=== PATIENT | male | born 1940 | race Caucasian/White ===

== ENCOUNTER 2020-09-07 13:53 | Emergency (ER) | payer OTHER ==
--- OUTSIDE RECORDS SUMMARY | 2020-09-07 13:57 | XMS REPORT | Continuity of Care Document ---
:1940 Author Organization [facility] t Address [address] [place] [address] Care Team Providers Name Role Phone Unavailable Unavailable Unavailable Payers Payer Name Policy Type Policy Number Effective Date Expiration Date S ource Problems This patient has no known problems. Allergies, Adverse Reactions, Alerts Allergy Allergy Status Severity Reaction(s) Onset Inactive Treating Comm ents Source Name Type Date Date Clinician morphine DA Active [place] 2019-11 [facility] [place] 00:00: [address] Medications This patient has no known medications. Procedures This patient has no known procedures. Results Test Description Test Time Test Comments Results Result Comments Source GLUCOSE BEDSIDE TESTING 2020-09-03 09:19:00 Test Item Value Reference Range Interpretation Comme [facility] GLUCOSE BEDSIDE TESTING (test code = GLUBED) 157 MG/DL 60-99 H - XR CHEST [id number] 08:07:[address] [facility] : 1940 Sex: M Patient Name: RAYSHAWN ZAVALA Unit No: [id number] EXAMS: CPT CODE: [id number] XR CHEST 1V [id number] EXAMINATION: - XR CHEST 1V. LOCATION: B2. HIST ORY: s/p CAB. COMPARISON: Radiograph dated 08/30/2020. TECHNIQUE: Single AP view of the chest was obtained. FINDINGS: Right subclavian line is unchangedin position. The heart is mildly enlarged in size. Small left pleural effusion and mild bibasilar opacities are not significantly changed. No acute osseous abnormality is identified. IMPRESSION: Small left pleural effusion and mild bibasilar opacities, unchanged. Cardiomegaly. Electronically Signed by Romana Del Rosario MD on09/03/2020 at 0807 Reported and signed by: Romana Del Rosario MD CC: April JOEL Technologist: RT Sharla(R) Transcrpt Date/Tm/Trnsp: 09/03/2020 (806) [email or web address] Orig Print D/T: S: 09/03/2020 (810) [facility] NAME: RAYSHAWN ZAVALA [address] [place] [address] PHYS: [place] [address] : 1940 AGE: 80 SEX: M LOC: Z.SI02 A PHONE #: [phone] EXAM DATE: 09/03/2020 STATUS: ADM IN FAX #: [phone] RADIOLOGY NO: PAGE 1 Signed ReportCBC W/AUTO [id number] 06:36:00 Test Item Value Reference Range Interpretation Comments WHITE BLOOD CELL (test code = 11.0 K/MM3 3.8-9.8 H WBC) RED BLOOD CELL (test code = 3.16 M/MM3 3.95-5.67 L RBC) HEMOGLOBIN (test code = HGB) 9.7 G/DL 12.4-16.7 L HEMATOCRIT (test code = HCT) 30.5 % 35.9-49.5 L MEAN CELL VOLUME (test code = 97 fL 81.7-96.1 H MCV) MEAN CELL HGB (test code = MCH) 30.7 pg 27.6-33.2 N MEAN CELL HGB CONCETRATION 31.8 % 32.9-35.5 L (test code = MCHC) RED CELL DISTRIBUTION WIDTH 14.5 % 12.1-15.2 N (test code = RDW) PLATELET COUNT (test code = 418 K/MM3 129-368 H PLT) MEAN PLATELET VOLUME (test code 8.5 fl 7.4-10.4 N = MPV) NEUTROPHIL % (test code = NT%) 59.2 % 43-75 N IMMATURE GRANULOCYTE % (test 2.0 % 0.0-2.0 N code = IG%) LYMPHOCYTE % (test code = LY%) 27.0 % 14-44 N MONOCYTE % (test code = MO%) 8.6 % 4-13 N EOSINOPHIL % (test code = EO%) 2.9 % 0-6 N BASOPHIL % (test code = BA%) 0.3 % 0-2 N NUCLEATED RBC % (test code = 0.2 % 0-1.0 N NRBC%) NEUTROPHIL # (test code = NT#) 6.53 K/mm3 2.0-7.6 N IMMATURE GRANULOCYTE # (test 0.22 x10 3/uL 0-0.03 H code = IG#) LYMPHOCYTE # (test code = LY#) 2.98 K/mm3 1.0-3.8 N MONOCYTE # (test code = MO#) 0.95 K/mm3 0.1-0.8 H EOSINOPHIL # (test code = EO#) 0.32 K/mm3 0.0-0.2 H BASOPHIL # (test code = BA#) 0.03 K/mm3 0.0-0.2 N NUCLEATED RBC # (test code = 0.02 K/mm3 0.0-0.1 N NRBC#) GLUCOSE BEDSIDE [id number] 21:13:00 Test Item Value Reference Range Interpretation Comments GLUCOSE BEDSIDE TESTING (test code 171 MG/DL 60-99 H = GLUBED) GLUCOSE BEDSIDE [id number] 18:15:00 Test Item Value Reference Range Interpretation Comments GLUCOSE BEDSIDE TESTING (test code 183 MG/DL 60-99 H = GLUBED) GLUCOSE BEDSIDE [id number] 14:16:00 Test Item Value Reference Range Interpretation Comments GLUCOSE BEDSIDE TESTING (test code 137 MG/DL 60-99 H = GLUBED) GLUCOSE BEDSIDE [id number] 10:31:00 Test Item Value Reference Range Interpretation Comments GLUCOSE BEDSIDE TESTING (test code 109 MG/DL 60-99 H = GLUBED) GLUCOSE BEDSIDE [id number] 10:31:00 Test Item Value Reference Range Interpretation Comments GLUCOSE BEDSIDE TESTING (test code 158 MG/DL 60-99 H = GLUBED) GLUCOSE BEDSIDE [id number] 08:43:00 Test Item Value Reference Range Interpretation Comments GLUCOSE BEDSIDE TESTING (test code 102 MG/DL 60-99 H = GLUBED) GLUCOSE BEDSIDE [id number] 21:05:00 Test Item Value Reference Range Interpretation Comments GLUCOSE BEDSIDE TESTING (test code 130 MG/DL 60-99 H = GLUBED) GLUCOSE BEDSIDE [id number] 15:55:00 Test Item Value Reference Range Interpretation Comments GLUCOSE BEDSIDE TESTING (test code 156 MG/DL 60-99 H = GLUBED) GLUCOSE BEDSIDE [id number] 20:36:00 Test Item Value Reference Range Interpretation Comments GLUCOSE BEDSIDE TESTING (test code 144 MG/DL 60-99 H = GLUBED) GLUCOSE BEDSIDE [id number] 17:00:00 Test Item Value Reference Range Interpretation Comments GLUCOSE BEDSIDE TESTING (test code = 99 MG/DL 60-99 N GLUBED) - XR KNEE 1 OR 2 V [id number] 15:56:[address] [facility] : 1940 Sex: M Patient Name: RAYSHAWN ZAVALA Unit No: [id number] EXAMS: CPT CODE: [id number] XR KNEE 1 OR 2 [place] [address] X-ray right knee. INDICATION: Pain FINDINGS: No priors. No evidence of an acute fracture or dislocation. Moderate tricompartment joint space narrowing. Mild joint effusion seen. Prior ACL repair. Moderate edema IMPRESSION: 1. No acute osseous abnormality. 2. Moderate soft tissue edema. 3. Moderate tricompartment arthritis at 1556 Reported and signed by: Zurdo Wheeler M.D. CC: Jany De La Paz MD Technologist: Nico Viera (RT) (R); Benigno Reynolds (RT) (R) Transcrpt Date/Tm/Trnsp: 08/31/2020 (1556) [id number] Orig Print D/T: S: 08/31/2020 (4396) [facility] NAME: RAYSHAWN ZAVALA [address] [address] PHYS: [place] [address] : 1940 AGE: 80 SEX: M LOC: Z.SI02 A PHONE #: [phone] EXAM DATE: 08/31/2020 STATUS: ADM IN FAX #: [phone] RADIOLOGY NO: PAGE 1 Signed ReportGLUCOSE BEDSIDE [id number] 11:53:00 Test Item Value Reference Range Interpretation Comments GLUCOSE BEDSIDE TESTING (test code 233 MG/DL 60-99 H = GLUBED) GLUCOSE BEDSIDE [id number] 08:52:00 Test Item Value Reference Range Interpretation Comments GLUCOSE BEDSIDE TESTING (test code 137 MG/DL 60-99 H = GLUBED) BASIC METABOLIC [id number] 07:02:00 Test Item Value Reference Range Interpretation Comments SODIUM (test code = 130 MMOL/L 137-145 L NA) POTASSIUM (test code = 3.6 MMOL/L 3.5-5.1 N K) CHLORIDE (test code = 98 MMOL/L 98-107 N CL) CARBON DIOXIDE (test 30 MMOL/L 22-30 N code = CO2) GLUCOSE (test code = 130 MG/DL 74-106 H GLU) BLOOD UREA NITROGEN 17 MG/DL 9-20 N (test code = BUN) GLOMERULAR FILTRATION > 60 Report ing units: RATE (test code = GFR) ml/mi n/1.73 m2 (Modified MDRD Formula)Referen ce Range: > or = 6 0 ml/min/1.73 m2 CREATININE (test code 1.00 MG/DL 0.66-1.25 N = CREAT) CALCIUM (test code = 7.8 MG/DL 8.4-10.2 L CA) Is this a LINE draw? [id number] 07:02:00 Test Item Value Reference Range Interpretation Comments MAGNESIUM (test code = MAG) 2.4 MG/DL 1.6-2.3 H Is this a LINE draw? NCBC W/AUTO [id number] 07:00:00 Test Item Value Reference Range Interpretation Comments WHITE BLOOD CELL (test code = 10.3 K/MM3 3.8-9.8 H WBC) RED BLOOD CELL (test code = 2.47 M/MM3 3.95-5.67 L RBC) HEMOGLOBIN (test code = HGB) 7.5 G/DL 12.4-16.7 L HEMATOCRIT (test code = HCT) 23.9 % 35.9-49.5 L MEAN CELL VOLUME (test code = 97 fL 81.7-96.1 H MCV) MEAN CELL HGB (test code = MCH) 30.4 pg 27.6-33.2 N MEAN CELL HGB CONCETRATION 31.4 % 32.9-35.5 L (test code = MCHC) RED CELL DISTRIBUTION WIDTH 13.3 % 12.1-15.2 N (test code = RDW) PLATELET COUNT (test code = 221 K/MM3 129-368 N PLT) MEAN PLATELET VOLUME (test code 9.7 fl 7.4-10.4 N = MPV) NEUTROPHIL % (test code = NT%) 70.3 % 43-75 N IMMATURE GRANULOCYTE % (test 1.1 % 0.0-2.0 N code = IG%) LYMPHOCYTE % (test code = LY%) 16.6 % 14-44 N MONOCYTE % (test code = MO%) 9.6 % 4-13 N EOSINOPHIL % (test code = EO%) 2.1 % 0-6 N BASOPHIL % (test code = BA%) 0.3 % 0-2 N NUCLEATED RBC % (test code = 0.2 % 0-1.0 N NRBC%) NEUTROPHIL # (test code = NT#) 7.23 K/mm3 2.0-7.6 N IMMATURE GRANULOCYTE # (test 0.11 x10 3/uL 0-0.03 H code = IG#) LYMPHOCYTE # (test code = LY#) 1.71 K/mm3 1.0-3.8 N MONOCYTE # (test code = MO#) 0.99 K/mm3 0.1-0.8 H EOSINOPHIL # (test code = EO#) 0.22 K/mm3 0.0-0.2 H BASOPHIL # (test code = BA#) 0.03 K/mm3 0.0-0.2 N NUCLEATED RBC # (test code = 0.02 K/mm3 0.0-0.1 N NRBC#) Is this a LINE draw? NBASIC METABOLIC [id number] 06:59:00 Test Item Value Reference Range Interpretation Comments SODIUM (test code = 130 MMOL/L 137-145 L NA) POTASSIUM (test code = 3.6 MMOL/L 3.5-5.1 N K) CHLORIDE (test code = 98 MMOL/L 98-107 N CL) CARBON DIOXIDE (test 30 MMOL/L 22-30 N code = CO2) GLUCOSE (test code = MG/DL 74-106 GLU) BLOOD UREA NITROGEN MG/DL 9-20 (test code = BUN) GLOMERULAR FILTRATION > 60 Report ing units: RATE (test code = GFR) ml/mi n/1.73 m2 (Modified MDRD Formula)Referen ce Range: > or = 6 0 ml/min/1.73 m2 CREATININE (test code 1.00 MG/DL 0.66-1.25 N = CREAT) CALCIUM (test code = MG/DL 8.7-9.7 CA) Is this a LINE draw? [id number] 06:59:00 Test Item Value Reference Range Interpretation Comments MAGNESIUM (test code = MAG) MG/DL 1.6-2.3 Is this a LINE draw? NBASIC METABOLIC [id number] 06:56:00 Test Item Value Reference Range Interpretation Comments SODIUM (test code = NA) 130 MMOL/L 137-145 L POTASSIUM (test code = K) 3.6 MMOL/L 3.5-5.1 N CHLORIDE (test code = CL) 98 MMOL/L 98-107 N CARBON DIOXIDE (test code = CO2) MMOL/L 22-30 GLUCOSE (test code = GLU) MG/DL 74-106 BLOOD UREA NITROGEN (test code = MG/DL 9-20 BUN) GLOMERULAR FILTRATION RATE (test code = GFR) CREATININE (test code = CREAT) MG/DL 0.66-1.25 CALCIUM (test code = CA) MG/DL 8.7-9.7 Is this a LINE draw? [id number] 06:56:00 Test Item Value Reference Range Interpretation Comments MAGNESIUM (test code = MAG) MG/DL 1.6-2.3 Is this a LINE draw? NCOMPREHENSIVE METABOLIC [id number] 17:26:00 Test Item Value Reference Range Interpretation Comments SODIUM (test code = 129 MMOL/L 137-145 L NA) POTASSIUM (test code 4.1 MMOL/L 3.5-5.1 N = K) CHLORIDE (test code 96 MMOL/L 98-107 L = CL) CARBON DIOXIDE (test 27 MMOL/L 22-30 N code = CO2) GLUCOSE (test code = 213 MG/DL 74-106 H GLU) BLOOD UREA NITROGEN 17 MG/DL 9-20 N (test code = BUN) GLOMERULAR > 60 Reporting units : FILTRATION RATE ml/min/1.73 m2 (test code = GFR) (Modified MDRD Formula)Referen ce Range: > or = 6 0 ml/min/1.73 m2 CREATININE (test 1.00 MG/DL 0.66-1.25 N code = CREAT) TOTAL PROTEIN (test 5.1 G/DL 6.2-7.6 L code = PROT) ALBUMIN (test code = 2.6 G/DL 3.5-5.0 L ALB) CALCIUM (test code = 7.8 MG/DL 8.4-10.2 L CA) BILIRUBIN TOTAL 0.7 MG/DL 0.2-1.3 N Eltrombopag (test code = BILT) Interfere nce for Vitros Product TBil, BuBc: ======= ======= ======A ssay Eltrombop ag Analyte/ Max Observed Avg. Bias Concentratio n Concentration Concentration== ======= ======= ======= =======TBil 7 mg/dl TBil/ 1.2m g/dl +0.23mg.dl +0.20mg/dlBuBc 3.5mg/dl Bu/0.8mg/dl +0.25mg/dl +0.24mg/dlBuBc 7 mg/dl Bu/14.2mg/dl +0.38mg/dl +0.25mg/dlBuBc 5mg/dl Bc/0mg/dl +0.25mg/dl +0.15mg/dlBuBc 3.5mg/dl Bc/2.8mg/dl +0.25mg/dl +0.23mg/dl SGOT/AST (test code 55 UNITS/L 17-59 N = AST) SGPT/ALT (test code 43 UNITS/L <50 = ALT) ALKALINE PHOSPHATASE 132 UNITS/L 38-126 H (test code = ALKP) COMPREHENSIVE METABOLIC [id number] 17:21:00 Test Item Value Reference Range Interpretation Comments SODIUM (test code = 129 MMOL/L 137-145 L NA) POTASSIUM (test code 4.1 MMOL/L 3.5-5.1 N = K) CHLORIDE (test code = 96 MMOL/L 98-107 L CL) CARBON DIOXIDE (test 27 MMOL/L 22-30 N code = CO2) GLUCOSE (test code = MG/DL 74-106 GLU) BLOOD UREA NITROGEN MG/DL 9-20 (test code = BUN) GLOMERULAR FILTRATION > 60 Report ing units: RATE (test code = ml/min/1.7 3 m2 GFR) (Modified MDRD Formula)Referen ce Range: > or = 6 0 ml/min/1.73 m2 CREATININE (test code 1.00 MG/DL 0.66-1.25 N = CREAT) TOTAL PROTEIN (test 5.1 G/DL 6.2-7.6 L code = PROT) ALBUMIN (test code = 2.6 G/DL 3.5-5.0 L ALB) CALCIUM (test code = MG/DL 8.7-9.7 CA) BILIRUBIN TOTAL (test 0.7 MG/DL 0.2-1.3 N Eltrom bopag code = BILT) Interference fo r Vitros Product TBil, BuBc: ======= ======= ======A ssay Eltrombop ag Analyte/ Max Observed Avg. Bias Concentratio n Concentration Concentration== ======= ======= ======= =======TBil 7 mg/dl TBil/ 1.2m g/dl +0.23mg.dl +0.20mg/dlBuBc 3.5mg/dl Bu/0.8mg/dl +0.25mg/dl +0.24mg/dlBuBc 7 mg/dl Bu/14.2mg/dl +0.38mg/dl +0.25mg/dlBuBc 5mg/dl Bc/0mg/dl +0.25mg/dl +0.15mg/dlBuBc 3.5mg/dl Bc/2.8mg/dl +0.25mg/dl +0.23mg/dl SGOT/AST (test code = 55 UNITS/L 17-59 N AST) SGPT/ALT (test code = UNITS/L <50 ALT) ALKALINE PHOSPHATASE UNITS/L 38-126 (test code = ALKP) COMPREHENSIVE METABOLIC [id number] 17:21:00 Test Item Value Reference Range Interpretation Comments SODIUM (test code = 129 MMOL/L 137-145 L NA) POTASSIUM (test code 4.1 MMOL/L 3.5-5.1 N = K) CHLORIDE (test code 96 MMOL/L 98-107 L = CL) CARBON DIOXIDE (test 27 MMOL/L 22-30 N code = CO2) GLUCOSE (test code = MG/DL 74-106 GLU) BLOOD UREA NITROGEN 17 MG/DL 9-20 N (test code = BUN) GLOMERULAR > 60 Reporting units : FILTRATION RATE ml/min/1.73 m2 (test code = GFR) (Modified MDRD Formula)Referen ce Range: > or = 6 0 ml/min/1.73 m2 CREATININE (test 1.00 MG/DL 0.66-1.25 N code = CREAT) TOTAL PROTEIN (test 5.1 G/DL 6.2-7.6 L code = PROT) ALBUMIN (test code = 2.6 G/DL 3.5-5.0 L ALB) CALCIUM (test code = MG/DL 8.7-9.7 CA) BILIRUBIN TOTAL 0.7 MG/DL 0.2-1.3 N Eltrombopag (test code = BILT) Interfere nce for Vitros Product TBil, BuBc: ======= ======= ======A ssay Eltrombop ag Analyte/ Max Observed Avg. Bias Concentratio n Concentration Concentration== ======= ======= ======= =======TBil 7 mg/dl TBil/ 1.2m g/dl +0.23mg.dl +0.20mg/dlBuBc 3.5mg/dl Bu/0.8mg/dl +0.25mg/dl +0.24mg/dlBuBc 7 mg/dl Bu/14.2mg/dl +0.38mg/dl +0.25mg/dlBuBc 5mg/dl Bc/0mg/dl +0.25mg/dl +0.15mg/dlBuBc 3.5mg/dl Bc/2.8mg/dl +0.25mg/dl +0.23mg/dl SGOT/AST (test code 55 UNITS/L 17-59 N = AST) SGPT/ALT (test code UNITS/L <50 = ALT) ALKALINE PHOSPHATASE 132 UNITS/L 38-126 H (test code = ALKP) COMPREHENSIVE METABOLIC [id number] 17:19:00 Test Item Value Reference Range Interpretation Comments SODIUM (test code = NA) 129 MMOL/L 137-145 L POTASSIUM (test code = K) 4.1 MMOL/L 3.5-5.1 N CHLORIDE (test code = CL) 96 MMOL/L 98-107 L CARBON DIOXIDE (test code = CO2) MMOL/L 22-30 GLUCOSE (test code = GLU) MG/DL 74-106 BLOOD UREA NITROGEN (test code = MG/DL 9-20 BUN) GLOMERULAR FILTRATION RATE (test code = GFR) CREATININE (test code = CREAT) MG/DL 0.66-1.25 TOTAL PROTEIN (test code = PROT) G/DL 6.2-7.6 ALBUMIN (test code = ALB) 2.6 G/DL 3.5-5.0 L CALCIUM (test code = CA) MG/DL 8.7-9.7 BILIRUBIN TOTAL (test code = BILT) MG/DL 0.2-1.3 SGOT/AST (test code = AST) UNITS/L 15-37 SGPT/ALT (test code = ALT) UNITS/L <50 ALKALINE PHOSPHATASE (test code = UNITS/L 38-126 ALKP) COMPREHENSIVE METABOLIC [id number] 17:18:00 Test Item Value Reference Range Interpretation Comments SODIUM (test code = NA) 129 MMOL/L 137-145 L POTASSIUM (test code = K) MMOL/L 3.5-5.1 CHLORIDE (test code = CL) 96 MMOL/L 98-107 L CARBON DIOXIDE (test code = CO2) MMOL/L 22-30 GLUCOSE (test code = GLU) MG/DL 74-106 BLOOD UREA NITROGEN (test code = MG/DL 9-20 BUN) GLOMERULAR FILTRATION RATE (test code = GFR) CREATININE (test code = CREAT) MG/DL 0.66-1.25 TOTAL PROTEIN (test code = PROT) G/DL 6.2-7.6 ALBUMIN (test code = ALB) 2.6 G/DL 3.5-5.0 L CALCIUM (test code = CA) MG/DL 8.7-9.7 BILIRUBIN TOTAL (test code = BILT) MG/DL 0.2-1.3 SGOT/AST (test code = AST) UNITS/L 15-37 SGPT/ALT (test code = ALT) UNITS/L <50 ALKALINE PHOSPHATASE (test code = UNITS/L 38-126 ALKP) GLUCOSE BEDSIDE [id number] 16:55:00 Test Item Value Reference Range Interpretation Comments GLUCOSE BEDSIDE TESTING (test code 157 MG/DL 60-99 H = GLUBED) GLUCOSE BEDSIDE [id number] 13:00:00 Test Item Value Reference Range Interpretation Comments GLUCOSE BEDSIDE TESTING (test code 179 MG/DL 60-99 H = GLUBED) CBC W/AUTO [id number] 10:37:00 Test Item Value Reference Range Interpretation Comments WHITE BLOOD CELL (test code = 11.8 K/MM3 3.8-9.8 H WBC) RED BLOOD CELL (test code = 2.59 M/MM3 3.95-5.67 L RBC) HEMOGLOBIN (test code = HGB) 8.0 G/DL 12.4-16.7 L HEMATOCRIT (test code = HCT) 24.5 % 35.9-49.5 L MEAN CELL VOLUME (test code = 95 fL 81.7-96.1 N MCV) MEAN CELL HGB (test code = MCH) 30.9 pg 27.6-33.2 N MEAN CELL HGB CONCETRATION 32.7 % 32.9-35.5 L (test code = MCHC) RED CELL DISTRIBUTION WIDTH 13.4 % 12.1-15.2 N (test code = RDW) PLATELET COUNT (test code = 201 K/MM3 129-368 PLT) MEAN PLATELET VOLUME (test code 9.5 fl 7.4-10.4 N = MPV) NEUTROPHIL % (test code = NT%) 81.0 % 43-75 H IMMATURE GRANULOCYTE % (test 1.0 % 0.0-2.0 N code = IG%) LYMPHOCYTE % (test code = LY%) 9.0 % 14-44 L MONOCYTE % (test code = MO%) 8.3 % 4-13 N EOSINOPHIL % (test code = EO%) 0.6 % 0-6 N BASOPHIL % (test code = BA%) 0.1 % 0-2 N NUCLEATED RBC % (test code = 0.2 % 0-1.0 N NRBC%) NEUTROPHIL # (test code = NT#) 9.52 K/mm3 2.0-7.6 H IMMATURE GRANULOCYTE # (test 0.12 x10 3/uL 0-0.03 H code = IG#) LYMPHOCYTE # (test code = LY#) 1.06 K/mm3 1.0-3.8 N MONOCYTE # (test code = MO#) 0.97 K/mm3 0.1-0.8 H EOSINOPHIL # (test code = EO#) 0.07 K/mm3 0.0-0.2 N BASOPHIL # (test code = BA#) 0.01 K/mm3 0.0-0.2 N NUCLEATED RBC # (test code = 0.02 K/mm3 0.0-0.1 N NRBC#) BASIC METABOLIC [id number] 10:22:00 Test Item Value Reference Range Interpretation Comments SODIUM (test code = 129 MMOL/L 137-145 L NA) POTASSIUM (test code = 4.1 MMOL/L 3.5-5.1 N K) CHLORIDE (test code = 95 MMOL/L 98-107 L CL) CARBON DIOXIDE (test 29 MMOL/L 22-30 N code = CO2) ANION GAP (test code = 9 MMOL/L 14-24 L GAP) GLUCOSE (test code = 211 MG/DL 74-106 H GLU) BLOOD UREA NITROGEN 17 MG/DL 9-20 N (test code = BUN) GLOMERULAR FILTRATION > 60 Report ing units: RATE (test code = GFR) ml/mi n/1.73 m2 (Modified MDRD Formula)Referen ce Range: > or = 6 0 ml/min/1.73 m2 CREATININE (test code 1.00 MG/DL 0.66-1.25 N = CREAT) CALCIUM (test code = 7.7 MG/DL 8.4-10.2 L CA) [id number] 10:22:00 Test Item Value Reference Range Interpretation Comments MAGNESIUM (test code = MAG) 2.4 MG/DL 1.6-2.3 H BASIC METABOLIC [id number] 10:21:00 Test Item Value Reference Range Interpretation Comments SODIUM (test code = 129 MMOL/L 137-145 L NA) POTASSIUM (test code = 4.1 MMOL/L 3.5-5.1 N K) CHLORIDE (test code = 95 MMOL/L 98-107 L CL) CARBON DIOXIDE (test MMOL/L 22-30 code = CO2) GLUCOSE (test code = MG/DL 74-106 GLU) BLOOD UREA NITROGEN MG/DL 9-20 (test code = BUN) GLOMERULAR FILTRATION > 60 Report ing units: RATE (test code = GFR) ml/mi n/1.73 m2 (Modified MDRD Formula)Referen ce Range: > or = 6 0 ml/min/1.73 m2 CREATININE (test code 1.00 MG/DL 0.66-1.25 N = CREAT) CALCIUM (test code = MG/DL 8.7-9.7 CA) [id number] 10:21:00 Test Item Value Reference Range Interpretation Comments MAGNESIUM (test code = MAG) MG/DL 1.6-2.3 BASIC METABOLIC [id number] 10:21:00 Test Item Value Reference Range Interpretation Comments SODIUM (test code = 129 MMOL/L 137-145 L NA) POTASSIUM (test code = 4.1 MMOL/L 3.5-5.1 N K) CHLORIDE (test code = 95 MMOL/L 98-107 L CL) CARBON DIOXIDE (test 29 MMOL/L 22-30 N code = CO2) ANION GAP (test code = 9 MMOL/L 14-24 L GAP) GLUCOSE (test code = MG/DL 74-106 GLU) BLOOD UREA NITROGEN MG/DL 9-20 (test code = BUN) GLOMERULAR FILTRATION > 60 Report ing units: RATE (test code = GFR) ml/mi n/1.73 m2 (Modified MDRD Formula)Referen ce Range: > or = 6 0 ml/min/1.73 m2 CREATININE (test code 1.00 MG/DL 0.66-1.25 N = CREAT) CALCIUM (test code = MG/DL 8.7-9.7 CA) [id number] 10:21:00 Test Item Value Reference Range Interpretation Comments MAGNESIUM (test code = MAG) MG/DL 1.6-2.3 BASIC METABOLIC [id number] 10:21:00 Test Item Value Reference Range Interpretation Comments SODIUM (test code = 129 MMOL/L 137-145 L NA) POTASSIUM (test code = 4.1 MMOL/L 3.5-5.1 N K) CHLORIDE (test code = 95 MMOL/L 98-107 L CL) CARBON DIOXIDE (test 29 MMOL/L 22-30 N code = CO2) ANION GAP (test code = 9 MMOL/L 14-24 L GAP) GLUCOSE (test code = 211 MG/DL 74-106 H GLU) BLOOD UREA NITROGEN 17 MG/DL 9-20 N (test code = BUN) GLOMERULAR FILTRATION > 60 Report ing units: RATE (test code = GFR) ml/mi n/1.73 m2 (Modified MDRD Formula)Referen ce Range: > or = 6 0 ml/min/1.73 m2 CREATININE (test code 1.00 MG/DL 0.66-1.25 N = CREAT) CALCIUM (test code = MG/DL 8.7-9.7 CA) [id number] 10:21:00 Test Item Value Reference Range Interpretation Comments MAGNESIUM (test code = MAG) MG/DL 1.6-2.3 BASIC METABOLIC [id number] 10:21:00 Test Item Value Reference Range Interpretation Comments SODIUM (test code = 129 MMOL/L 137-145 L NA) POTASSIUM (test code = 4.1 MMOL/L 3.5-5.1 N K) CHLORIDE (test code = 95 MMOL/L 98-107 L CL) CARBON DIOXIDE (test 29 MMOL/L 22-30 N code = CO2) ANION GAP (test code = 9 MMOL/L 14-24 L GAP) GLUCOSE (test code = 211 MG/DL 74-106 H GLU) BLOOD UREA NITROGEN 17 MG/DL 9-20 N (test code = BUN) GLOMERULAR FILTRATION > 60 Report ing units: RATE (test code = GFR) ml/mi n/1.73 m2 (Modified MDRD Formula)Referen ce Range: > or = 6 0 ml/min/1.73 m2 CREATININE (test code 1.00 MG/DL 0.66-1.25 N = CREAT) CALCIUM (test code = 7.7 MG/DL 8.4-10.2 L CA) [id number] 10:21:00 Test Item Value Reference Range Interpretation Comments MAGNESIUM (test code = MAG) MG/DL 1.6-2.3 BASIC METABOLIC [id number] 10:18:00 Test Item Value Reference Range Interpretation Comments SODIUM (test code = NA) 129 MMOL/L 137-145 L POTASSIUM (test code = K) 4.1 MMOL/L 3.5-5.1 N CHLORIDE (test code = CL) 95 MMOL/L 98-107 L CARBON DIOXIDE (test code = CO2) MMOL/L 22-30 GLUCOSE (test code = GLU) MG/DL 74-106 BLOOD UREA NITROGEN (test code = MG/DL 9-20 BUN) GLOMERULAR FILTRATION RATE (test code = GFR) CREATININE (test code = CREAT) MG/DL 0.66-1.25 CALCIUM (test code = CA) MG/DL 8.7-9.7 [id number] 10:18:00 Test Item Value Reference Range Interpretation Comments MAGNESIUM (test code = MAG) MG/DL 1.6-2.3 - XR CHEST [id number] 07:59:[address] [facility] : 1940 Sex: M Patient Name: RAYSHAWN ZAVALA Unit No: [id number] EXAMS: CPT CODE: [id number] XR CHEST 1V 86458 B2 EXAM: - XR CHEST 1V HISTORY: S/P CABG COMPARISON: 08/29/2020 FINDINGS: Right subclavian central line in unchanged position. Median sternotomy wires again noted. Confluent bibasilar airspace opacities. No pleural effusion or pneumothorax. Moderate enlargement of the cardiac silhouette. No acute osseous abnormalities. IMPRESSION: Moderate congestive heart failurewith pulmonary edema again noted. at 0759 Reported and signed by: Tavon Kimball [facility]: Technologist: Joanna Baird RT(R) Transcrpt Date/Tm/Trnsp: 08/30/2020 (0759) [email or web address] Orig Print D/T: S: 08/30/2020 (0802) [facility] NAME: RAYSHAWN ZAVALA [id number] [address] PHYS: [place] [address] : 1940 AGE: 80 SEX: M LOC: [id number] PHONE #: [phone] EXAM DATE: 08/30/2020 STATUS: ADM IN FAX #: [phone] RADIOLOGY NO: PAGE 1 Signed Report GLUCOSE BEDSIDE [id number] 05:07:00 Test Item Value Reference Range Interpretation Comments GLUCOSE BEDSIDE TESTING (test code 126 MG/DL 60-99 H = GLUBED) GLUCOSE BEDSIDE [id number] 21:04:00 Test Item Value Reference Range Interpretation Comments GLUCOSE BEDSIDE TESTING (test code 164 MG/DL 60-99 H = GLUBED) - XR CHEST [id number] 14:00:[address] [facility] : 1940 Sex: M Patient Name: RAYSHAWN ZAVALA Unit No: [id number] EXAMS: CPT CODE: [id number] XR CHEST 1V 75809 EXAMINATION: - XR CHEST 1V. LOCATION: . HIST ORY: S/P CHEST TUBE REMOVAL. COMPARISON: Radiograph of same day at 0541 hours. TECHNIQUE: Single AP view of the chest was obtained. FINDINGS: Right subclavian line is unchanged in position. There has been interval removal of the mediastinal drainand left chest tube. The heart is enlarged in size. There are small bilateral pleural effusions with bibasilar opacities, unchanged. No pneumothorax is seen. No acute osseous abnormality is identified. IMPRESSION: Small bilateral pleural effusions with bibasilar opacities, unchanged. There is no pneumothorax. Cardiomegaly. at 1400 Reported and signed by: Romana Del Rosario MD CC: Technologist: Jackie Cain, RT (R) Transcrpt Date/Tm/Trnsp: 08/29/2020 (1400) [email or web address] Orig Print D/T: S: 08/29/2020 (1403) [facility] NAME: RAYSHAWN ZAVALA [id number] PHYS: [place] [address] : 1940 AGE: 80 SEX: M LOC: Z.SI02 A PHONE #: [phone] EXAM DATE: 08/29/2020 STATUS: ADM IN FAX #: [phone] RADIOLOGY NO: PAGE 1 Signed Report- XR CHEST [id number] 07:11:[address] [facility] : 1940 Sex: M Patient Name: RAYSHAWN ZAVALA Unit No: [id number] EXAMS: CPT CODE: [id number] XR CHEST 1V [id number] EXAM: - XR CHEST 1V INDICATION: S/P CABG Locat ion: C3. COMPARISON: None TECHNIQUE: Frontal view of the chest. FINDINGS: Unchanged small amount of bibasilar opacities. Unchanged appearance of cardiomediastinal silhouette. Unchanged appearance of right-sided subcutaneous and central line. IMPRESSION: Unchanged small amount of bibasilar opacities, suggesting atelectasis or pneumonia with associated small effusions. at 0711 Reported and signed by: Mohsen Rios MD CC: Technologist: Joanna Baird RT(R) Transcrpt Date/Tm/Trnsp: 08/29/2020 (07) [email or web address] Orig Print D/T: S: 08/29/2020 (0714) [facility] NAME: RAYSHAWN ZAVALA [id number] PHYS: [place] [address] : 1940 AGE: 80 SEX: M LOC: Z.SI02 A PHONE #: [phone] EXAM DATE: 08/29/2020 STATUS: ADM IN FAX #: [phone] RADIOLOGY NO: PAGE 1 Signed ReportGLUCOSE BEDSIDE TESTING 2020-08-28 21:06:00 Test Item Value Reference Range Interpretation Comments GLUCOSE BEDSIDE TESTING (test code 153 MG/DL 60-99 H = GLUBED) GLUCOSE BEDSIDE [id number] 20:13:00 Test Item Value Reference Range Interpretation Comments GLUCOSE BEDSIDE TESTING (test code 195 MG/DL 60-99 H = GLUBED) GLUCOSE BEDSIDE [id number] 16:14:00 Test Item Value Reference Range Interpretation Comments GLUCOSE BEDSIDE TESTING (test code 161 MG/DL 60-99 H = GLUBED) GLUCOSE BEDSIDE [id number] 12:24:00 Test Item Value Reference Range Interpretation Comments GLUCOSE BEDSIDE TESTING (test code 177 MG/DL 60-99 H = GLUBED) BASIC METABOLIC [id number] 09:53:00 Test Item Value Reference Range Interpretation Comments SODIUM (test code = 134 MMOL/L 137-145 L NA) POTASSIUM (test code = 4.6 MMOL/L 3.5-5.1 N K) CHLORIDE (test code = 102 MMOL/L 98-107 N CL) CARBON DIOXIDE (test 24 MMOL/L 22-30 N code = CO2) GLUCOSE (test code = 214 MG/DL 74-106 H GLU) BLOOD UREA NITROGEN 19 MG/DL 9-20 (test code = BUN) GLOMERULAR FILTRATION > 60 Report ing units: RATE (test code = GFR) ml/mi n/1.73 m2 (Modified MDRD Formula)Referen ce Range: > or = 6 0 ml/min/1.73 m2 CREATININE (test code 1.10 MG/DL 0.66-1.25 N = CREAT) CALCIUM (test code = 7.8 MG/DL 8.4-10.2 L CA) Is this a LINE draw? [id number] 09:53:00 Test Item Value Reference Range Interpretation Comments MAGNESIUM (test code = MAG) 3.1 MG/DL 1.6-2.3 H Is this a LINE draw? YBASIC METABOLIC [id number] 09:39:00 Test Item Value Reference Range Interpretation Comments SODIUM (test code = MMOL/L 137-145 NA) POTASSIUM (test code = 4.6 MMOL/L 3.5-5.1 N K) CHLORIDE (test code = 102 MMOL/L 98-107 N CL) CARBON DIOXIDE (test 24 MMOL/L 22-30 N code = CO2) GLUCOSE (test code = 214 MG/DL 74-106 H GLU) BLOOD UREA NITROGEN 19 MG/DL 9-20 (test code = BUN) GLOMERULAR FILTRATION > 60 Report ing units: RATE (test code = GFR) ml/mi n/1.73 m2 (Modified MDRD Formula)Referen ce Range: > or = 6 0 ml/min/1.73 m2 CREATININE (test code 1.10 MG/DL 0.66-1.25 N = CREAT) CALCIUM (test code = 7.8 MG/DL 8.4-10.2 L CA) Is this a LINE draw? [id number] 09:39:00 Test Item Value Reference Range Interpretation Comments MAGNESIUM (test code = MAG) 3.1 MG/DL 1.6-2.3 H Is this a LINE draw? YCBC W/AUTO [id number] 09:31:00 Test Item Value Reference Range Interpretation Comments WHITE BLOOD CELL (test code = 11.2 K/MM3 3.8-9.8 H WBC) RED BLOOD CELL (test code = 2.69 M/MM3 3.95-5.67 L RBC) HEMOGLOBIN (test code = HGB) 8.2 G/DL 12.4-16.7 L HEMATOCRIT (test code = HCT) 25.2 % 35.9-49.5 L MEAN CELL VOLUME (test code = 94 fL 81.7-96.1 N MCV) MEAN CELL HGB (test code = MCH) 30.5 pg 27.6-33.2 N MEAN CELL HGB CONCETRATION 32.5 % 32.9-35.5 L (test code = MCHC) RED CELL DISTRIBUTION WIDTH 13.6 % 12.1-15.2 N (test code = RDW) PLATELET COUNT (test code = 122 K/MM3 129-368 L PLT) MEAN PLATELET VOLUME (test code 9.5 fl 7.4-10.4 N = MPV) NEUTROPHIL % (test code = NT%) 79.3 % 43-75 H IMMATURE GRANULOCYTE % (test 0.4 % 0.0-2.0 N code = IG%) LYMPHOCYTE % (test code = LY%) 11.5 % 14-44 L MONOCYTE % (test code = MO%) 8.7 % 4-13 N EOSINOPHIL % (test code = EO%) 0.0 % 0-6 N BASOPHIL % (test code = BA%) 0.1 % 0-2 N NUCLEATED RBC % (test code = 0.0 % 0-1.0 N NRBC%) NEUTROPHIL # (test code = NT#) 8.90 K/mm3 2.0-7.6 H IMMATURE GRANULOCYTE # (test 0.04 x10 3/uL 0-0.03 H code = IG#) LYMPHOCYTE # (test code = LY#) 1.29 K/mm3 1.0-3.8 N MONOCYTE # (test code = MO#) 0.98 K/mm3 0.1-0.8 H EOSINOPHIL # (test code = EO#) 0.00 K/mm3 0.0-0.2 N BASOPHIL # (test code = BA#) 0.01 K/mm3 0.0-0.2 N NUCLEATED RBC # (test code = 0.00 K/mm3 0.0-0.1 N NRBC#) - XR CHEST [id number] 08:09:[address] [facility] : 1940 Sex: M Patient Name: RAYSHAWN ZAVALA Unit No: [id number] EXAMS: CPT CODE: [id number] XR CHEST 1V 69128 EXAM: - XR CHEST 1V CLINICAL HISTORY: S/P CABG COMPARISON: Chest radiograph 08/27/2020 and 08/26/2020. LOCATION: U19 FINDINGS: Interval removal of [place]Sid catheter. Stable right central line catheter. Midline sternotomy wires and surgical clips noted projecting over the mediastinum. The trachea appears normal. Cardiac silhouette is obscured, but again appears enlarged similar to priors. Low lung volumes. The upper lungs are clear. Persistent small bilateral pleural effusions with overlying bibasilar atelectasis. Limited evaluation of soft tissues and osseous structures is grossly unremarkable. IMPRESSION: Persistent small bilateral pleural effusions with overlying bibasilar atelectasis. Unchanged cardiomegaly. Lines and tubes as detailed above. at 0809 Reported and signed by: Tunde Trevino MD CC: Technologist: RT Sharla(R) Transcrpt Date/Tm/Trnsp: 08/28/2020 (808) t.[email or web address] Orig Print D/T: S: 08/28/2020 (811) [facility] NAME: RAYSHAWN ZAVALA [id number] PHYS: [place] [address] : 1940 AGE: 80 SEX: M LOC: Z.SI02 A PHONE #: [phone] EXAM DATE: 08/28/2020 STATUS: ADM IN FAX #: [phone] RADIOLOGY NO: PAGE 1 Signed Report GLUCOSE BEDSIDE [id number] 06:12:00 Test Item Value Reference Range Interpretation Comments GLUCOSE BEDSIDE TESTING (test code 233 MG/DL 60-99 H = GLUBED) GLUCOSE BEDSIDE [id number] 06:12:00 Test Item Value Reference Range Interpretation Comments GLUCOSE BEDSIDE TESTING (test code 161 MG/DL 60-99 H = GLUBED) GLUCOSE BEDSIDE [id number] 06:12:00 Test Item Value Reference Range Interpretation Comments GLUCOSE BEDSIDE TESTING (test code 156 MG/DL 60-99 H = GLUBED) GLUCOSE BEDSIDE [id number] 06:12:00 Test Item Value Reference Range Interpretation Comments GLUCOSE BEDSIDE TESTING (test code 103 MG/DL 60-99 H = GLUBED) GLUCOSE BEDSIDE [id number] 17:48:00 Test Item Value Reference Range Interpretation Comments GLUCOSE BEDSIDE TESTING (test code 174 MG/DL 60-99 H = GLUBED) GLUCOSE BEDSIDE [id number] 14:04:00 Test Item Value Reference Range Interpretation Comments GLUCOSE BEDSIDE TESTING (test code 175 MG/DL 60-99 H = GLUBED) GLUCOSE BEDSIDE [id number] 13:28:00 Test Item Value Reference Range Interpretation Comments GLUCOSE BEDSIDE TESTING (test code 175 MG/DL 60-99 H = GLUBED) GLUCOSE BEDSIDE [id number] 13:28:00 Test Item Value Reference Range Interpretation Comments GLUCOSE BEDSIDE TESTING (test code 155 MG/DL 60-99 H = GLUBED) GLUCOSE BEDSIDE [id number] 08:58:00 Test Item Value Reference Range Interpretation Comments GLUCOSE BEDSIDE TESTING (test code 152 MG/DL 60-99 H = GLUBED) GLUCOSE BEDSIDE [id number] 08:58:00 Test Item Value Reference Range Interpretation Comments GLUCOSE BEDSIDE TESTING (test code 144 MG/DL 60-99 H = GLUBED) GLUCOSE BEDSIDE [id number] 08:58:00 Test Item Value Reference Range Interpretation Comments GLUCOSE BEDSIDE TESTING (test code 156 MG/DL 60-99 H = GLUBED) GLUCOSE BEDSIDE [id number] 08:58:00 Test Item Value Reference Range Interpretation Comments GLUCOSE BEDSIDE TESTING (test code 148 MG/DL 60-99 H = GLUBED) GLUCOSE BEDSIDE [id number] 08:58:00 Test Item Value Reference Range Interpretation Comments GLUCOSE BEDSIDE TESTING (test code 156 MG/DL 60-99 H = GLUBED) GLUCOSE BEDSIDE [id number] 08:58:00 Test Item Value Reference Range Interpretation Comments GLUCOSE BEDSIDE TESTING (test code 183 MG/DL 60-99 H = GLUBED) - XR CHEST [id number] 08:06:[address] [facility] : 1940 Sex: M Patient Name: RAYSHAWN ZAVALA Unit No: [id number] EXAMS: CPT CODE: [id number] XR CHEST 1V 60616 EXAM: - XR CHEST 1V CLINICAL HISTORY: S/P CABG COMPARISON: Chest radiographs 08/26/2020 and 08/23/2020. LOCATION: U1 FINDINGS: Interval extubation. Right-sided central line catheter and [place]Sid catheter are unchanged in position. Midline sternotomy wires and mediastinal surgical clips again noted. The trachea again demonstrates slight rightward deviation at the level of the aortic arch, but is otherwise normal. The cardiac silhouette is partially obscured, but appears within the upper limits of normal size similar to prior exams. Low lung volumes with bibasilar airspace opacities, possibly representing atelectasis. The upper lungs are clear. Limited evaluation of soft tissues and osseous structures is grossly unremarkable. IMPRESSION: Low lung volumes with bibasilar airspace opacities, most likely representing atelectasis. at 0806 Reported and signed by: Tunde Trevino MD CC: Technologist: RT Sharla(R) Transcrpt Date/Tm/Trnsp: 08/27/2020 (0806) [id number] Orig Print D/T: S: 08/27/2020 (0810) [facility] NAME: RAYSHAWN ZAVALA [id number] PHYS: [place] [address] : 1940 AGE: 80 SEX: M LOC: Z.SI02 A PHONE #: [phone] EXAM DATE: 08/27/2020 STATUS: ADM IN FAX #: [phone] RADIOLOGY NO: PAGE 1 Signed ReportGLUCOSE BEDSIDE [id number] 18:23:00 Test Item Value Reference Range Interpretation Comments GLUCOSE BEDSIDE TESTING (test code 184 MG/DL 60-99 H = GLUBED) GLUCOSE BEDSIDE [id number] 18:23:00 Test Item Value Reference Range Interpretation Comments GLUCOSE BEDSIDE TESTING (test code 178 MG/DL 60-99 H = GLUBED) ARTERIAL BLOOD [id number] 17:06:00 Test Item Value Reference Range Interpretation Comments ARTERIAL BLOOD GAS PH (test code 7.39 mmHg 7.35-7.45 N = PHA) ARTERIAL BLOOD GAS PCO2 (test 33.8 mmHg 35.0-45.0 L code = PCO2A) ARTERIAL BLOOD GAS PO2 (test 216.0 mmol/L 80.0-100.0 H code = PO2A) BICARBONATE TOTAL HCO3 (test 19.9 mmol/L 20.0-26.0 L code = HCO3) BASE EXCESS (test code = YORDY) -4.1 mmol/L -3.0-3.0 L ABG O2 SATURATION (test code = 99.4 % 95.0-100.0 N SATA) ABG DELIVERY (test code = ABDIFATAH) VENT ABG VENT MODE (test code = A/C MODEA) ABG VENT RESP RATE (test code = 16.0 /MIN RRA) ABG TIDAL VOLUME (test code = 500 ml TVA) ABG PEEP (test code = PEEPA) 5.0 cmH2O ABG TEMPERATURE (test code = 37.0 C >37 TEMPA) ABG SITE (test code = SITEA) LINE ALLENS TEST (test code = ALLENS) NA CHECK FIO2 (test code = COHBGFFIO2) 100 % PaO2/[id number] 17:06:00 Test Item Value Reference Range Interpretation Comments PaO2/FiO2 (test code = RSG9JOZ9) mm/Hg ARTERIAL BLOOD [id number] 17:06:00 Test Item Value Reference Range Interpretation Comments ARTERIAL BLOOD GAS PH (test code 7.39 mmHg 7.35-7.45 N = PHA) ARTERIAL BLOOD GAS PCO2 (test 33.8 mmHg 35.0-45.0 L code = PCO2A) ARTERIAL BLOOD GAS PO2 (test 216.0 mmol/L 80.0-100.0 H code = PO2A) BICARBONATE TOTAL HCO3 (test 19.9 mmol/L 20.0-26.0 L code = HCO3) BASE EXCESS (test code = YORDY) -4.1 mmol/L -3.0-3.0 L ABG O2 SATURATION (test code = 99.4 % 95.0-100.0 N SATA) ABG DELIVERY (test code = ABDIFATAH) VENT ABG VENT MODE (test code = A/C MODEA) ABG VENT RESP RATE (test code = 16.0 /MIN RRA) ABG TIDAL VOLUME (test code = 500 ml TVA) ABG PEEP (test code = PEEPA) 5.0 cmH2O ABG TEMPERATURE (test code = 37.0 C >37 TEMPA) ABG SITE (test code = SITEA) LINE ALLENS TEST (test code = ALLENS) NA CHECK FIO2 (test code = COHBGFFIO2) 100 % PaO2/[id number] 17:06:00 Test Item Value Reference Range Interpretation Comments PaO2/FiO2 (test code = GSI9HFY2) 216.00 mm/Hg [id number] 16:40:00 Test Item Value Reference Range Interpretation Comments MAGNESIUM (test code = 5.3 MG/DL 1.6-2.3 HH JARVIS D TO NA. VALENTIN.& MAG) READBACK ON AT 1640 BY Jatin Pérez Comments to [employer] Equipment Repairer: PLEASE ADD TO RECENTLY COLLECTED BLOODIs this a LINE draw? N- XR CHEST [id number] 15:49:[address] [facility] : 1940 Sex: M Patient Name: RAYSHAWN ZAVALA Unit No: [id number] EXAMS: CPT CODE: [id number] XR CHEST 1V 63839 B2 EXAM: - XR CHEST 1V HISTORY: S/P CABG COMPARISON: 08/23/2020 FINDINGS: Interval placement of an endotracheal tube with its tip projected 4.7 cm from the vicky. Nasogastric tube projects below the diaphragm. [place]Sid catheter tip projects over the right main pulmonary artery. Right subclavian central line tip projects over the superior vena cava. Median sternotomy wires are present. Retrocardiac airspace consolidation. No pleural effusion or pneumothorax. The cardiac silhouette is within normal limits. No acute osseous abnormalities. IMPRESSION: 1. Support lines and tubes in place. 2. Retrocardiac atelectasis and/or pulmonary edema. at 1549 Reported and signed by: Tavon Kimball MD CC: Technologist: Socorro Larson (RT) Transcrpt Date/Tm/Trnsp: 08/26/2020 (1549) [id number] Orig Print D/T: S: 08/26/2020 (9599) [facility] NAME: RAYSHAWN ZAVALA [address] PHYS: [place] [address] : 1940 AGE: 80 SEX: M : Z.SI02 A PHONE #: [phone] EXAM DATE: 08/26/2020 STATUS: ADM IN FAX #: [phone] RADIOLOGY NO: PAGE 1 Signed ReportBASIC METABOLIC PANEL 2020-08-26 15:10:00 Test Item Value Reference Range Interpretation Comments SODIUM (test code = 139 MMOL/L 137-145 N NA) POTASSIUM (test code = 5.3 MMOL/L 3.5-5.1 H K) CHLORIDE (test code = 115 MMOL/L 98-107 H CL) CARBON DIOXIDE (test 22 MMOL/L 22-30 N code = CO2) ANION GAP (test code = 7 MMOL/L 14-24 L GAP) GLUCOSE (test code = 112 MG/DL 74-106 H GLU) BLOOD UREA NITROGEN 14 MG/DL 9-20 N (test code = BUN) GLOMERULAR FILTRATION > 60 Report ing units: RATE (test code = GFR) ml/mi n/1.73 m2 (Modified MDRD Formula)Referen ce Range: > or = 6 0 ml/min/1.73 m2 CREATININE (test code 0.80 MG/DL 0.66-1.25 = CREAT) CALCIUM (test code = 6.7 MG/DL 8.4-10.2 L CA) CALL [id number] METABOLIC [id number] 15:04:00 Test Item Value Reference Range Interpretation Comments SODIUM (test code = NA) 139 MMOL/L 137-145 N POTASSIUM (test code = K) 5.3 MMOL/L 3.5-5.1 H CHLORIDE (test code = CL) 115 MMOL/L 98-107 H CARBON DIOXIDE (test code = CO2) MMOL/L 22-30 GLUCOSE (test code = GLU) MG/DL 74-106 BLOOD UREA NITROGEN (test code = MG/DL 9-20 BUN) GLOMERULAR FILTRATION RATE (test code = GFR) CREATININE (test code = CREAT) MG/DL 0.66-1.25 CALCIUM (test code = CA) MG/DL 8.7-9.7 CALL 8482CBC W/AUTO [id number] 15:00:00 Test Item Value Reference Range Interpretation Comments WHITE BLOOD CELL (test code = 16.0 K/MM3 3.8-9.8 H WBC) RED BLOOD CELL (test code = 3.14 M/MM3 3.95-5.67 L RBC) HEMOGLOBIN (test code = HGB) 9.5 G/DL 12.4-16.7 L HEMATOCRIT (test code = HCT) 29.6 % 35.9-49.5 L MEAN CELL VOLUME (test code = 94 fL 81.7-96.1 N MCV) MEAN CELL HGB (test code = MCH) 30.3 pg 27.6-33.2 N MEAN CELL HGB CONCETRATION 32.1 % 32.9-35.5 L (test code = MCHC) RED CELL DISTRIBUTION WIDTH 13.2 % 12.1-15.2 N (test code = RDW) PLATELET COUNT (test code = 119 K/MM3 129-368 L PLT) MEAN PLATELET VOLUME (test code 8.6 fl 7.4-10.4 N = MPV) NEUTROPHIL % (test code = NT%) 70.5 % 43-75 N IMMATURE GRANULOCYTE % (test 0.5 % 0.0-2.0 N code = IG%) LYMPHOCYTE % (test code = LY%) 24.9 % 14-44 N MONOCYTE % (test code = MO%) 3.2 % 4-13 L EOSINOPHIL % (test code = EO%) 0.7 % 0-6 N BASOPHIL % (test code = BA%) 0.2 % 0-2 N NUCLEATED RBC % (test code = 0.0 % 0-1.0 N NRBC%) NEUTROPHIL # (test code = NT#) 11.28 K/mm3 2.0-7.6 H IMMATURE GRANULOCYTE # (test 0.08 x10 3/uL 0-0.03 H code = IG#) LYMPHOCYTE # (test code = LY#) 3.99 K/mm3 1.0-3.8 H MONOCYTE # (test code = MO#) 0.52 K/mm3 0.1-0.8 N EOSINOPHIL # (test code = EO#) 0.11 K/mm3 0.0-0.2 N BASOPHIL # (test code = BA#) 0.04 K/mm3 0.0-0.2 N NUCLEATED RBC # (test code = 0.00 K/mm3 0.0-0.1 N NRBC#) CALL [id number] [id number] 15:00:00 Test Item Value Reference Range Interpretation Comments PROTHROMBIN TIME 20.7 SECONDS 9.4-12.5 H PATIENT (test code = PTP) INTERNATIONAL NORMAL 1.9 The INR is to be RATIO (test code = used only for INR) monitoring oral anticoagulantth erap y. INDICATION I NR VALUE ---- ---- ---- -------1. Prophylaxis, de ep venous thrombos is, including hig h risk surgery. 2.0 - 3.0 2. Prophylaxis, de ep venous thrombos is, hip surgery, treatment for d eep venous thrombosis or pulmonary prevention of systemic emboli sm in patients wit h valvular heart disease, atrial fibrillation, tissue heart va lve, or acute myocar dial infarction. 2.0 - 3 .0 3. Mechanical prosthesis hear t valves, recurrent syste savanna embolism. 3.0 - 4.5 CALL [id number] [id number] 15:00:00 Test Item Value Reference Range Interpretation Comments PTT ACTIVATED (test code = APTT) 31.9 SECONDS 25.1-36.5 N CALL [id number] 14:16:00 Test Item Value Reference Range Interpretation Comments POTASSIUM (test code = 6.2 MMOL/L 3.5-5.1 HH JARVIS D TO RELL H& K) READBACK ON AT 1416 BY Anna Saenz CALL [id number] 14:16:00 Test Item Value Reference Range Interpretation Comments GLUCOSE (test code = GLU) 101 MG/DL 74-106 CALL 8482HGB [id number] 13:34:00 Test Item Value Reference Range Interpretation Comments HEMOGLOBIN (test code = HGB) 7.7 G/DL 12.4-16.7 L HEMATOCRIT (test code = HCT) 24.7 % 35.9-49.5 L CALL [id number] 13:23:00 Test Item Value Reference Range Interpretation Comments POTASSIUM (test code = K) 4.7 MMOL/L 3.5-5.1 N PLEASE CALL RESULTS TO PHONE #: [id number] 13:23:00 Test Item Value Reference Range Interpretation Comments GLUCOSE (test code = GLU) 131 MG/DL 74-106 H PLEASE CALL RESULTS TO PHONE #: [id number] 13:20:00 Test Item Value Reference Range Interpretation Comments POTASSIUM (test code = K) 4.7 MMOL/L 3.5-5.1 N PLEASE CALL RESULTS TO PHONE #: [id number] 13:20:00 Test Item Value Reference Range Interpretation Comments GLUCOSE (test code = GLU) MG/DL 74-106 PLEASE CALL RESULTS TO PHONE #: [id number] STATHGB [id number] 12:59:00 Test Item Value Reference Range Interpretation Comments HEMOGLOBIN (test code = HGB) 8.4 G/DL 12.4-16.7 L HEMATOCRIT (test code = HCT) 25.5 % 35.9-49.5 L PLEASE CALL RESULTS TO PHONE #: [id number] STATBASIC METABOLIC [id number] 11:17:00 Test Item Value Reference Range Interpretation Comments SODIUM (test code = 138 MMOL/L 137-145 N NA) POTASSIUM (test code = 4.4 MMOL/L 3.5-5.1 N K) CHLORIDE (test code = 105 MMOL/L 98-107 N CL) CARBON DIOXIDE (test 23 MMOL/L 22-30 N code = CO2) GLUCOSE (test code = 140 MG/DL 74-106 H GLU) BLOOD UREA NITROGEN 19 MG/DL 9-20 N (test code = BUN) GLOMERULAR FILTRATION > 60 Report ing units: RATE (test code = GFR) ml/mi n/1.73 m2 (Modified MDRD Formula)Referen ce Range: > or = 6 0 ml/min/1.73 m2 CREATININE (test code 1.10 MG/DL 0.66-1.25 N = CREAT) CALCIUM (test code = 8.6 MG/DL 8.4-10.2 N CA) CALL [id number] METABOLIC [id number] 11:16:00 Test Item Value Reference Range Interpretation Comments SODIUM (test code = 138 MMOL/L 137-145 N NA) POTASSIUM (test code = 4.4 MMOL/L 3.5-5.1 N K) CHLORIDE (test code = 105 MMOL/L 98-107 N CL) CARBON DIOXIDE (test MMOL/L 22-30 code = CO2) GLUCOSE (test code = MG/DL 74-106 GLU) BLOOD UREA NITROGEN MG/DL 9-20 (test code = BUN) GLOMERULAR FILTRATION > 60 Report ing units: RATE (test code = GFR) ml/mi n/1.73 m2 (Modified MDRD Formula)Referen ce Range: > or = 6 0 ml/min/1.73 m2 CREATININE (test code 1.10 MG/DL 0.66-1.25 N = CREAT) CALCIUM (test code = MG/DL 8.7-9.7 CA) CALL [id number] METABOLIC [id number] 11:14:00 Test Item Value Reference Range Interpretation Comments SODIUM (test code = NA) 138 MMOL/L 137-145 N POTASSIUM (test code = K) 4.4 MMOL/L 3.5-5.1 N CHLORIDE (test code = CL) 105 MMOL/L 98-107 N CARBON DIOXIDE (test code = CO2) MMOL/L 22-30 GLUCOSE (test code = GLU) MG/DL 74-106 BLOOD UREA NITROGEN (test code = MG/DL 9-20 BUN) GLOMERULAR FILTRATION RATE (test code = GFR) CREATININE (test code = CREAT) MG/DL 0.66-1.25 CALCIUM (test code = CA) MG/DL 8.7-9.7 CALL 8413BASIC METABOLIC [id number] 11:13:00 Test Item Value Reference Range Interpretation Comments SODIUM (test code = NA) 138 MMOL/L 137-145 N POTASSIUM (test code = K) MMOL/L 3.5-5.1 CHLORIDE (test code = CL) 105 MMOL/L 98-107 N CARBON DIOXIDE (test code = CO2) MMOL/L 22-30 GLUCOSE (test code = GLU) MG/DL 74-106 BLOOD UREA NITROGEN (test code = MG/DL 9-20 BUN) GLOMERULAR FILTRATION RATE (test code = GFR) CREATININE (test code = CREAT) MG/DL 0.66-1.25 CALCIUM (test code = CA) MG/DL 8.7-9.7 CALL [id number] W/AUTO [id number] 10:37:00 Test Item Value Reference Range Interpretation Comments WHITE BLOOD CELL (test code = 8.6 K/MM3 3.8-9.8 N WBC) RED BLOOD CELL (test code = 4.03 M/MM3 3.95-5.67 N RBC) HEMOGLOBIN (test code = HGB) 12.0 G/DL 12.4-16.7 L HEMATOCRIT (test code = HCT) 36.8 % 35.9-49.5 N MEAN CELL VOLUME (test code = 91 fL 81.7-96.1 N MCV) MEAN CELL HGB (test code = MCH) 29.8 pg 27.6-33.2 N MEAN CELL HGB CONCETRATION 32.6 % 32.9-35.5 L (test code = MCHC) RED CELL DISTRIBUTION WIDTH 13.0 % 12.1-15.2 N (test code = RDW) PLATELET COUNT (test code = 287 K/MM3 129-368 N PLT) MEAN PLATELET VOLUME (test code 8.7 fl 7.4-10.4 N = MPV) NEUTROPHIL % (test code = NT%) 62.7 % 43-75 N IMMATURE GRANULOCYTE % (test 0.1 % 0.0-2.0 N code = IG%) LYMPHOCYTE % (test code = LY%) 27.8 % 14-44 N MONOCYTE % (test code = MO%) 8.1 % 4-13 N EOSINOPHIL % (test code = EO%) 0.8 % 0-6 N BASOPHIL % (test code = BA%) 0.5 % 0-2 N NUCLEATED RBC % (test code = 0.0 % 0-1.0 N NRBC%) NEUTROPHIL # (test code = NT#) 5.42 K/mm3 2.0-7.6 N IMMATURE GRANULOCYTE # (test 0.01 x10 3/uL 0-0.03 N code = IG#) LYMPHOCYTE # (test code = LY#) 2.40 K/mm3 1.0-3.8 N MONOCYTE # (test code = MO#) 0.70 K/mm3 0.1-0.8 N EOSINOPHIL # (test code = EO#) 0.07 K/mm3 0.0-0.2 N BASOPHIL # (test code = BA#) 0.04 K/mm3 0.0-0.2 N NUCLEATED RBC # (test code = 0.00 K/mm3 0.0-0.1 N NRBC#) CALL [id number] BLOOD [id number] 08:57:00 Test Item Value Reference Range Interpretation Comments ARTERIAL BLOOD GAS PH (test code 7.41 mmHg 7.35-7.45 N = PHA) ARTERIAL BLOOD GAS PCO2 (test 38.3 mmHg 35.0-45.0 N code = PCO2A) ARTERIAL BLOOD GAS PO2 (test code 72.4 mmol/L 80.0-100.0 L = PO2A) BICARBONATE TOTAL HCO3 (test code 23.8 mmol/L 20.0-26.0 N = HCO3) BASE EXCESS (test code = YORDY) -0.5 mmol/L -3.0-3.0 N ABG O2 SATURATION (test code = 94.8 % 95.0-100.0 L SATA) ABG DELIVERY (test code = ABDIFATAH) RM AIR ABG TEMPERATURE (test code = 37.0 C >37 TEMPA) ABG SITE (test code = SITEA) AL ALLENS TEST (test code = ALLENS) NA CHECK FIO2 (test code = COHBGFFIO2) 21 % [id number] 08:57:00 Test Item Value Reference Range Interpretation Comments PaO2/FiO2 (test code = [id number]) 344.76 mm/Hg ARTERIAL BLOOD [id number] 08:56:00 Test Item Value Reference Range Interpretation Comments ARTERIAL BLOOD GAS PH (test code 7.41 mmHg 7.35-7.45 N = PHA) ARTERIAL BLOOD GAS PCO2 (test 38.3 mmHg 35.0-45.0 N code = PCO2A) ARTERIAL BLOOD GAS PO2 (test code 72.4 mmol/L 80.0-100.0 L = PO2A) BICARBONATE TOTAL HCO3 (test code 23.8 mmol/L 20.0-26.0 N = HCO3) BASE EXCESS (test code = YORDY) -0.5 mmol/L -3.0-3.0 N ABG O2 SATURATION (test code = 94.8 % 95.0-100.0 L SATA) ABG DELIVERY (test code = ABDIFATAH) RM AIR ABG TEMPERATURE (test code = 37.0 C >37 TEMPA) ABG SITE (test code = SITEA) AL ALLENS TEST (test code = ALLENS) NA CHECK FIO2 (test code = COHBGFFIO2) 21 % PaO2/[id number] 08:56:00 Test Item Value Reference Range Interpretation Comments PaO2/FiO2 (test code = [id number]) mm/Hg Novel Coronavirus 2019 [id number] 13:23:00 Test Item Value Reference Range Interpretation Comments Novel Coronavirus Not Detected Not Detected Testing wa s performed 2019 Inhouse (test using the Aptima code = COVNONPUI) SARS-CoV-2 assay.This nucleic acid amplification t est was developed and itsperformance characteristics determined by [facility]. Nucleic acid amplification t ests include PCRand TMA. This test has not be en FDA cleared or appr maira.This test has been a uthorized by FDA under an Emergency UseAuthorizatio n (EUA). This test is on ly authorized fort he duration of salazar e the declaration jocelyn t circumstancesex ist justifying the authorization o f the emergency use o fin vitro diagnostic test s for detection of SA RS-CoV-2 virusand/or mini gnosis of COVID-19 infect ion under nybsskk064(b)(1 ) of the Act, 21 U.S.C. 360bbb-3(b) (1) , unless theauthorizatio n is terminated or r evoked sooner.When mini gnostic testing is nega tive, the possibility of afalse negative result should be considered i n the contextof a pat ient's recent exposure s and the presence ofclin ical signs and sympt oms consistent with COVID-19. Anind ividual without symptom s of COVID-19 and wh o is notshedding MELANIE S-CoV-2 virus would exp ect to have a negative (not detected) resul t in this assay.Performed At: [facility] [address] [id number] khanh Arriaga MD Ph:[phone] Is this a LINE draw? NPROTHROMBIN [id number] 22:02:00 Test Item Value Reference Range Interpretation Comments PROTHROMBIN TIME 12.5 SECONDS 9.4-12.5 N PATIENT (test code = PTP) INTERNATIONAL NORMAL 1.1 The INR is to be RATIO (test code = used only for INR) monitoring oral anticoagulantth erap y. INDICATION I NR VALUE ---- ---- ---- -------1. Prophylaxis, de ep venous thrombos is, including hig h risk surgery. 2.0 - 3.0 2. Prophylaxis, de ep venous thrombos is, hip surgery, treatment for d eep venous thrombosis or pulmonary prevention of systemic emboli sm in patients wit h valvular heart disease, atrial fibrillation, tissue heart va lve, or acute myocar dial infarction. 2.0 - 3 .0 3. Mechanical prosthesis hear t valves, recurrent syste savanna embolism. 3.0 - 4.5 IS PATIENT ON ANTICOAGULANTS: NPTT [id number] 22:02:00 Test Item Value Reference Range Interpretation Comments PTT ACTIVATED (test code = APTT) 35.3 SECONDS 25.1-36.5 N IS PATIENT ON ANTICOAGULANTS: NPLT RESPONSE TO [id number] 22:02:00 Test Item Value Reference Range Interpretation Comments PLT RESPONSE TO 248 PRU 194-418 N P2Y12 Result s PLAVIX (test code = Interpre tation: Test PLAVRES) results are in P2Y12 Reaction Units (PRU). Pre-Drug Refe rence Range is 194-41 8. Pre-drug platel et function estima cristo the total possible platelet aggregation independent of P2Y12 inhibitor drugs . Values <194 cou ld be due to low HCT, low platelet count, or p resence of IIb/IIIa inhibi tors. Post-Drug Resu lts: Lower PRU levels are associated with expec lokesh antiplatelet ef fect. Values may be b elow the stated refe rence range. Studies show that patients wi th <230 PRU had fewer a dverse events. IS PATIENT ON ANTICOAGULANTS: NHIV 12 AB [id number] 16:12:00 Test Item Value Reference Range Interpretation Comments HIV 1 2 COMBO AG/AB SCREEN AB/AG NON REACTIVE NONREACTIVE (test code = [id number]) COMPREHENSIVE METABOLIC [id number] 15:56:00 Test Item Value Reference Range Interpretation Comments SODIUM (test code = 136 MMOL/L 137-145 L NA) POTASSIUM (test code 4.9 MMOL/L 3.5-5.1 N = K) CHLORIDE (test code = 101 MMOL/L 98-107 N CL) CARBON DIOXIDE (test 29 MMOL/L 22-30 N code = CO2) GLUCOSE (test code = 152 MG/DL 74-106 H GLU) BLOOD UREA NITROGEN 21 MG/DL 9-20 H (test code = BUN) GLOMERULAR FILTRATION 53 Report ing units: RATE (test code = ml/min/1.7 3 m2 GFR) (Modified MDRD Formula)Referen ce Range: > or = 6 0 ml/min/1.73 m2 CREATININE (test code 1.30 MG/DL 0.66-1.25 H = CREAT) TOTAL PROTEIN (test 7.6 G/DL 6.2-7.6 N code = PROT) ALBUMIN (test code = 4.3 G/DL 3.5-5.0 N ALB) CALCIUM (test code = 9.8 MG/DL 8.4-10.2 N CA) BILIRUBIN TOTAL (test 0.7 MG/DL 0.2-1.3 N Eltrom bopag code = BILT) Interference fo r Vitros Product TBil, BuBc: ======= ======= ======A ssay Eltrombop ag Analyte/ Max Observed Avg. Bias Concentratio n Concentration Concentration== ======= ======= ======= =======TBil 7 mg/dl TBil/ 1.2m g/dl +0.23mg.dl +0.20mg/dlBuBc 3.5mg/dl Bu/0.8mg/dl +0.25mg/dl +0.24mg/dlBuBc 7 mg/dl Bu/14.2mg/dl +0.38mg/dl +0.25mg/dlBuBc 5mg/dl Bc/0mg/dl +0.25mg/dl +0.15mg/dlBuBc 3.5mg/dl Bc/2.8mg/dl +0.25mg/dl +0.23mg/dl SGOT/AST (test code = 25 UNITS/L 17-59 N AST) SGPT/ALT (test code = 17 UNITS/L <50 ALT) ALKALINE PHOSPHATASE 64 UNITS/L 38-126 N (test code = ALKP) COMPREHENSIVE METABOLIC [id number] 15:55:00 Test Item Value Reference Range Interpretation Comments SODIUM (test code = 136 MMOL/L 137-145 L NA) POTASSIUM (test code 4.9 MMOL/L 3.5-5.1 N = K) CHLORIDE (test code = 101 MMOL/L 98-107 N CL) CARBON DIOXIDE (test 29 MMOL/L 22-30 N code = CO2) GLUCOSE (test code = MG/DL 74-106 GLU) BLOOD UREA NITROGEN MG/DL 9-20 (test code = BUN) GLOMERULAR FILTRATION 53 Report ing units: RATE (test code = ml/min/1.7 3 m2 GFR) (Modified MDRD Formula)Referen ce Range: > or = 6 0 ml/min/1.73 m2 CREATININE (test code 1.30 MG/DL 0.66-1.25 H = CREAT) TOTAL PROTEIN (test 7.6 G/DL 6.2-7.6 N code = PROT) ALBUMIN (test code = 4.3 G/DL 3.5-5.0 N ALB) CALCIUM (test code = MG/DL 8.7-9.7 CA) BILIRUBIN TOTAL (test 0.7 MG/DL 0.2-1.3 N Eltrom bopag code = BILT) Interference fo r Vitros Product TBil, BuBc: ======= ======= ======A ssay Eltrombop ag Analyte/ Max Observed Avg. Bias Concentratio n Concentration Concentration== ======= ======= ======= =======TBil 7 mg/dl TBil/ 1.2m g/dl +0.23mg.dl +0.20mg/dlBuBc 3.5mg/dl Bu/0.8mg/dl +0.25mg/dl +0.24mg/dlBuBc 7 mg/dl Bu/14.2mg/dl +0.38mg/dl +0.25mg/dlBuBc 5mg/dl Bc/0mg/dl +0.25mg/dl +0.15mg/dlBuBc 3.5mg/dl Bc/2.8mg/dl +0.25mg/dl +0.23mg/dl SGOT/AST (test code = UNITS/L 15-37 AST) SGPT/ALT (test code = UNITS/L <50 ALT) ALKALINE PHOSPHATASE UNITS/L 38-126 (test code = ALKP) COMPREHENSIVE METABOLIC [id number] 15:53:00 Test Item Value Reference Range Interpretation Comments SODIUM (test code = NA) 136 MMOL/L 137-145 L POTASSIUM (test code = K) 4.9 MMOL/L 3.5-5.1 N CHLORIDE (test code = CL) 101 MMOL/L 98-107 N CARBON DIOXIDE (test code = CO2) MMOL/L 22-30 GLUCOSE (test code = GLU) MG/DL 74-106 BLOOD UREA NITROGEN (test code = MG/DL 9-20 BUN) GLOMERULAR FILTRATION RATE (test code = GFR) CREATININE (test code = CREAT) MG/DL 0.66-1.25 TOTAL PROTEIN (test code = PROT) G/DL 6.2-7.6 ALBUMIN (test code = ALB) 4.3 G/DL 3.5-5.0 N CALCIUM (test code = CA) MG/DL 8.7-9.7 BILIRUBIN TOTAL (test code = BILT) MG/DL 0.2-1.3 SGOT/AST (test code = AST) UNITS/L 15-37 SGPT/ALT (test code = ALT) UNITS/L <50 ALKALINE PHOSPHATASE (test code = UNITS/L 38-126 ALKP) COMPREHENSIVE METABOLIC [id number] 15:52:00 Test Item Value Reference Range Interpretation Comments SODIUM (test code = NA) MMOL/L 137-145 POTASSIUM (test code = K) MMOL/L 3.5-5.1 CHLORIDE (test code = CL) 101 MMOL/L 98-107 N CARBON DIOXIDE (test code = CO2) MMOL/L 22-30 GLUCOSE (test code = GLU) MG/DL 74-106 BLOOD UREA NITROGEN (test code = MG/DL 9-20 BUN) GLOMERULAR FILTRATION RATE (test code = GFR) CREATININE (test code = CREAT) MG/DL 0.66-1.25 TOTAL PROTEIN (test code = PROT) G/DL 6.2-7.6 ALBUMIN (test code = ALB) 4.3 G/DL 3.5-5.0 N CALCIUM (test code = CA) MG/DL 8.7-9.7 BILIRUBIN TOTAL (test code = BILT) MG/DL 0.2-1.3 SGOT/AST (test code = AST) UNITS/L 15-37 SGPT/ALT (test code = ALT) UNITS/L <50 ALKALINE PHOSPHATASE (test code = UNITS/L 38-126 ALKP) GLYCOSYLATED HEMOGLOBIN [id number] 15:50:00 Test Item Value Reference Range Interpretation Comments GLYCOSYLATED 6.3 % 4.8-5.9 H Any condition t hat HEMOGLOBIN (HA1C) shortens e rythocyte (test code = survival or dec reasesmean GLYHGB) erythrocyte age (e.g., recovery from a cute blood loss,hemolytic anemia) will falsely lo wer HGBA1c resultsregardle ss of the method used. H GBA1c results from erik tello HbSS, HbCC, and HbSc must be interpreted with cautiongiven th e pathological pr ocesses, including anemia,increase d red cell turnover, trans fusion requirements, thatadversely i mpact HGBA1c as a mar ker of long-term glycemiccontrol . Alternative for ms of testing such as fructosaminesho uld be considered for these patients. MEAN BLOOD GLUCOSE 134 MG/DL 70-110 H (test code = MBG) PROTHROMBIN [id number] 15:35:00 Test Item Value Reference Range Interpretation Comments PROTHROMBIN TIME 12.5 SECONDS 9.4-12.5 N PATIENT (test code = PTP) INTERNATIONAL NORMAL 1.1 The INR is to be RATIO (test code = used only for INR) monitoring oral anticoagulantth erap y. INDICATION I NR VALUE ---- ---- ---- -------1. Prophylaxis, de ep venous thrombos is, including hig h risk surgery. 2.0 - 3.0 2. Prophylaxis, de ep venous thrombos is, hip surgery, treatment for d eep venous thrombosis or pulmonary prevention of systemic emboli sm in patients wit h valvular heart disease, atrial fibrillation, tissue heart va lve, or acute myocar dial infarction. 2.0 - 3 .0 3. Mechanical prosthesis hear t valves, recurrent syste savanna embolism. 3.0 - 4.5 IS PATIENT ON ANTICOAGULANTS: NPTT [id number] 15:35:00 Test Item Value Reference Range Interpretation Comments PTT ACTIVATED (test code = APTT) 35.3 SECONDS 25.1-36.5 N IS PATIENT ON ANTICOAGULANTS: NPLT RESPONSE TO [id number] 15:35:00 Test Item Value Reference Range Interpretation Comments PLT RESPONSE TO PLAVIX (test code = PRU 194-418 PLAVRES) IS PATIENT ON ANTICOAGULANTS: N- XR CHEST 2 [id number] 15:24:[address] [facility] : 1940 Sex: M Patient Name: RAYSHAWN ZAVALA Unit No: [id number] EXAMS: CPT CODE: [id number] XR CHEST 2 V [id number] Location code: B2 HISTORY: Preop TECHNIQUE: Fro ntal and lateral views of the chest were obtained. FINDINGS: The cardiomediastinal silhouette is unremarkable. The trachea is midline. The lungs are clear. There is no effusion or pneumothorax. The bones are intact. IMPRESSION: No acute pulmonary process. at 1524 Reported and signed by: Zurdo Wheeler M.D. CC: Technologist: Hugo Aquino (RT) Transcrpt Date/Tm/Trnsp: 08/23/2020 (1524) [id number] Orig Print D/T: S: 08/23/2020 (1527) [facility] NAME: RAYSHAWN ZAVALA [id number] PHYS: [place] [address] : 1940 AGE: 80 SEX: M LOC: U PHONE #: [phone] EXAM DATE: 08/23/2020 STATUS: PRE IN FAX #: [phone] RADIOLOGY NO: PAGE 1 Signed ReportCBC W/AUTO [id number] 15:17:00 Test Item Value Reference Range Interpretation Comments WHITE BLOOD CELL (test code = 8.6 K/MM3 3.8-9.8 N WBC) RED BLOOD CELL (test code = 4.63 M/MM3 3.95-5.67 N RBC) HEMOGLOBIN (test code = HGB) 13.7 G/DL 12.4-16.7 N HEMATOCRIT (test code = HCT) 43.4 % 35.9-49.5 N MEAN CELL VOLUME (test code = 94 fL 81.7-96.1 N MCV) MEAN CELL HGB (test code = MCH) 29.6 pg 27.6-33.2 N MEAN CELL HGB CONCETRATION 31.6 % 32.9-35.5 L (test code = MCHC) RED CELL DISTRIBUTION WIDTH 13.0 % 12.1-15.2 N (test code = RDW) PLATELET COUNT (test code = 343 K/MM3 129-368 N PLT) MEAN PLATELET VOLUME (test code 8.7 fl 7.4-10.4 N = MPV) NEUTROPHIL % (test code = NT%) 59.0 % 43-75 N IMMATURE GRANULOCYTE % (test 0.2 % 0.0-2.0 N code = IG%) LYMPHOCYTE % (test code = LY%) 30.1 % 14-44 N MONOCYTE % (test code = MO%) 8.3 % 4-13 N EOSINOPHIL % (test code = EO%) 1.8 % 0-6 N BASOPHIL % (test code = BA%) 0.6 % 0-2 N NUCLEATED RBC % (test code = 0.0 % 0-1.0 N NRBC%) NEUTROPHIL # (test code = NT#) 5.06 K/mm3 2.0-7.6 N IMMATURE GRANULOCYTE # (test 0.02 x10 3/uL 0-0.03 N code = IG#) LYMPHOCYTE # (test code = LY#) 2.58 K/mm3 1.0-3.8 N MONOCYTE # (test code = MO#) 0.71 K/mm3 0.1-0.8 N EOSINOPHIL # (test code = EO#) 0.15 K/mm3 0.0-0.2 N BASOPHIL # (test code = BA#) 0.05 K/mm3 0.0-0.2 N NUCLEATED RBC # (test code = 0.00 K/mm3 0.0-0.1 N NRBC#) BASIC METABOLIC [id number] 08:01:00 Test Item Value Reference Range Interpretation Comments SODIUM (test code = 134 MMOL/L 137-145 L NA) POTASSIUM (test code = 4.7 MMOL/L 3.5-5.1 N K) CHLORIDE (test code = 100 MMOL/L 98-107 N CL) CARBON DIOXIDE (test 26 MMOL/L 22-30 N code = CO2) GLUCOSE (test code = 162 MG/DL 74-106 H GLU) BLOOD UREA NITROGEN 19 MG/DL 9-20 N (test code = BUN) GLOMERULAR FILTRATION 58 Report ing units: RATE (test code = GFR) ml/mi n/1.73 m2 (Modified MDRD Formula)Referen ce Range: > or = 6 0 ml/min/1.73 m2 CREATININE (test code 1.20 MG/DL 0.66-1.25 N = CREAT) CALCIUM (test code = 8.9 MG/DL 8.4-10.2 N CA) LIPID PROFILE (CORONARY RISK)2020-08-17 08:01:00 Test Item Value Reference Range Interpretation Comments TRIGLYCERIDES (test 190 MG/DL TRIGLYCE RIDES code = TRIG) REFERENCE RANGE:Normal: < 150 mg/dLBorderline High: 150-199 mg/dLHi gh: 200-499 mg/dLVe ry High: >=500 mg/ dL CHOLESTEROL (test code 301 MG/DL <200 = CHOL) HDL CHOLESTEROL (test 35 MG/DL 40-59 L code = HDL) LIPOPROTEIN LDL (test 230 MG/DL 0-99 H code = LDL) OPTIMAL........ .<100 mg/dLNEAR OPTIMAL/ABOVE OPTIMAL........ .100-12 9 mg/dL BORDERLINE HIGH.........13 0-159 mg/dL HIGH.........16 0-189 mg/dL VERY HIGH...... ...>/= 190 mg/dL [id number] 08:01:00 Test Item Value Reference Range Interpretation Comments MAGNESIUM (test code = MAG) 2.3 MG/DL 1.6-2.3 N BASIC METABOLIC [id number] 07:50:00 Test Item Value Reference Range Interpretation Comments SODIUM (test code = 134 MMOL/L 137-145 L NA) POTASSIUM (test code = 4.7 MMOL/L 3.5-5.1 N K) CHLORIDE (test code = 100 MMOL/L 98-107 N CL) CARBON DIOXIDE (test 26 MMOL/L 22-30 N code = CO2) GLUCOSE (test code = 162 MG/DL 74-106 H GLU) BLOOD UREA NITROGEN 19 MG/DL 9-20 N (test code = BUN) GLOMERULAR FILTRATION 58 Report ing units: RATE (test code = GFR) ml/mi n/1.73 m2 (Modified MDRD Formula)Referen ce Range: > or = 6 0 ml/min/1.73 m2 CREATININE (test code 1.20 MG/DL 0.66-1.25 N = CREAT) CALCIUM (test code = MG/DL 8.7-9.7 CA) LIPID PROFILE (CORONARY RISK)2020-08-17 07:50:00 Test Item Value Reference Range Interpretation Comments TRIGLYCERIDES (test 190 MG/DL TRIGLYCE RIDES code = TRIG) REFERENCE RANGE:Normal: < 150 mg/dLBorderline High: 150-199 mg/dLHi gh: 200-499 mg/dLVe ry High: >=500 mg/ dL CHOLESTEROL (test code 301 MG/DL <200 = CHOL) HDL CHOLESTEROL (test MG/DL 40-59 code = HDL) LIPOPROTEIN LDL (test MG/DL 0-99 code = LDL) [id number] 07:50:00 Test Item Value Reference Range Interpretation Comments MAGNESIUM (test code = MAG) MG/DL 1.6-2.3 BASIC METABOLIC [id number] 07:50:00 Test Item Value Reference Range Interpretation Comments SODIUM (test code = 134 MMOL/L 137-145 L NA) POTASSIUM (test code = 4.7 MMOL/L 3.5-5.1 N K) CHLORIDE (test code = 100 MMOL/L 98-107 N CL) CARBON DIOXIDE (test 26 MMOL/L 22-30 N code = CO2) GLUCOSE (test code = 162 MG/DL 74-106 H GLU) BLOOD UREA NITROGEN 19 MG/DL 9-20 N (test code = BUN) GLOMERULAR FILTRATION 58 Report ing units: RATE (test code = GFR) ml/mi n/1.73 m2 (Modified MDRD Formula)Referen ce Range: > or = 6 0 ml/min/1.73 m2 CREATININE (test code 1.20 MG/DL 0.66-1.25 N = CREAT) CALCIUM (test code = 8.9 MG/DL 8.4-10.2 N CA) LIPID PROFILE (CORONARY RISK)2020-08-17 07:50:00 Test Item Value Reference Range Interpretation Comments TRIGLYCERIDES (test 190 MG/DL TRIGLYCE RIDES code = TRIG) REFERENCE RANGE:Normal: < 150 mg/dLBorderline High: 150-199 mg/dLHi gh: 200-499 mg/dLVe ry High: >=500 mg/ dL CHOLESTEROL (test code 301 MG/DL <200 = CHOL) HDL CHOLESTEROL (test MG/DL 40-59 code = HDL) LIPOPROTEIN LDL (test MG/DL 0-99 code = LDL) [id number] 07:50:00 Test Item Value Reference Range Interpretation Comments MAGNESIUM (test code = MAG) MG/DL 1.6-2.3 BASIC METABOLIC [id number] 07:50:00 Test Item Value Reference Range Interpretation Comments SODIUM (test code = 134 MMOL/L 137-145 L NA) POTASSIUM (test code = 4.7 MMOL/L 3.5-5.1 N K) CHLORIDE (test code = 100 MMOL/L 98-107 N CL) CARBON DIOXIDE (test 26 MMOL/L 22-30 N code = CO2) GLUCOSE (test code = 162 MG/DL 74-106 H GLU) BLOOD UREA NITROGEN 19 MG/DL 9-20 N (test code = BUN) GLOMERULAR FILTRATION 58 Report ing units: RATE (test code = GFR) ml/mi n/1.73 m2 (Modified MDRD Formula)Referen ce Range: > or = 6 0 ml/min/1.73 m2 CREATININE (test code 1.20 MG/DL 0.66-1.25 N = CREAT) CALCIUM (test code = 8.9 MG/DL 8.4-10.2 N CA) LIPID PROFILE (CORONARY RISK)2020-08-17 07:50:00 Test Item Value Reference Range Interpretation Comments TRIGLYCERIDES (test 190 MG/DL TRIGLYCE RIDES code = TRIG) REFERENCE RANGE:Normal: < 150 mg/dLBorderline High: 150-199 mg/dLHi gh: 200-499 mg/dLVe ry High: >=500 mg/ dL CHOLESTEROL (test code 301 MG/DL <200 = CHOL) HDL CHOLESTEROL (test 35 MG/DL 40-59 L code = HDL) LIPOPROTEIN LDL (test MG/DL 0-99 code = LDL) [id number] 07:50:00 Test Item Value Reference Range Interpretation Comments MAGNESIUM (test code = MAG) 2.3 MG/DL 1.6-2.3 N BASIC METABOLIC [id number] 07:49:00 Test Item Value Reference Range Interpretation Comments SODIUM (test code = 134 MMOL/L 137-145 L NA) POTASSIUM (test code = 4.7 MMOL/L 3.5-5.1 N K) CHLORIDE (test code = 100 MMOL/L 98-107 N CL) CARBON DIOXIDE (test 26 MMOL/L 22-30 N code = CO2) GLUCOSE (test code = MG/DL 74-106 GLU) BLOOD UREA NITROGEN MG/DL 9-20 (test code = BUN) GLOMERULAR FILTRATION 58 Report ing units: RATE (test code = GFR) ml/mi n/1.73 m2 (Modified MDRD Formula)Referen ce Range: > or = 6 0 ml/min/1.73 m2 CREATININE (test code 1.20 MG/DL 0.66-1.25 N = CREAT) CALCIUM (test code = MG/DL 8.7-9.7 CA) LIPID PROFILE (CORONARY RISK)2020-08-17 07:49:00 Test Item Value Reference Range Interpretation Comments TRIGLYCERIDES (test code = TRIG) MG/DL CHOLESTEROL (test code = CHOL) 301 MG/DL <200 HDL CHOLESTEROL (test code = HDL) MG/DL 40-59 LIPOPROTEIN LDL (test code = LDL) MG/DL 0-99 [id number] 07:49:00 Test Item Value Reference Range Interpretation Comments MAGNESIUM (test code = MAG) MG/DL 1.6-2.3 BASIC METABOLIC [id number] 07:47:00 Test Item Value Reference Range Interpretation Comments SODIUM (test code = NA) 134 MMOL/L 137-145 L POTASSIUM (test code = K) MMOL/L 3.5-5.1 CHLORIDE (test code = CL) 100 MMOL/L 98-107 N CARBON DIOXIDE (test code = CO2) MMOL/L 22-30 GLUCOSE (test code = GLU) MG/DL 74-106 BLOOD UREA NITROGEN (test code = MG/DL 9-20 BUN) GLOMERULAR FILTRATION RATE (test code = GFR) CREATININE (test code = CREAT) MG/DL 0.66-1.25 CALCIUM (test code = CA) MG/DL 8.7-9.7 LIPID PROFILE (CORONARY RISK)2020-08-17 07:47:00 Test Item Value Reference Range Interpretation Comments TRIGLYCERIDES (test code = TRIG) MG/DL CHOLESTEROL (test code = CHOL) MG/DL <200 HDL CHOLESTEROL (test code = HDL) MG/DL 40-59 LIPOPROTEIN LDL (test code = LDL) MG/DL 0-99 [id number] 07:47:00 Test Item Value Reference Range Interpretation Comments MAGNESIUM (test code = MAG) MG/DL 1.6-2.3 BASIC METABOLIC [id number] 07:47:00 Test Item Value Reference Range Interpretation Comments SODIUM (test code = NA) 134 MMOL/L 137-145 L POTASSIUM (test code = K) 4.7 MMOL/L 3.5-5.1 N CHLORIDE (test code = CL) 100 MMOL/L 98-107 N CARBON DIOXIDE (test code = CO2) MMOL/L 22-30 GLUCOSE (test code = GLU) MG/DL 74-106 BLOOD UREA NITROGEN (test code = MG/DL 9-20 BUN) GLOMERULAR FILTRATION RATE (test code = GFR) CREATININE (test code = CREAT) MG/DL 0.66-1.25 CALCIUM (test code = CA) MG/DL 8.7-9.7 LIPID PROFILE (CORONARY RISK)2020-08-17 07:47:00 Test Item Value Reference Range Interpretation Comments TRIGLYCERIDES (test code = TRIG) MG/DL CHOLESTEROL (test code = CHOL) MG/DL <200 HDL CHOLESTEROL (test code = HDL) MG/DL 40-59 LIPOPROTEIN LDL (test code = LDL) MG/DL 0-99 [id number] 07:47:00 Test Item Value Reference Range Interpretation Comments MAGNESIUM (test code = MAG) MG/DL 1.6-2.3 BASIC METABOLIC [id number] 07:46:00 Test Item Value Reference Range Interpretation Comments SODIUM (test code = NA) MMOL/L 137-145 POTASSIUM (test code = K) MMOL/L 3.5-5.1 CHLORIDE (test code = CL) 100 MMOL/L 98-107 N CARBON DIOXIDE (test code = CO2) MMOL/L 22-30 GLUCOSE (test code = GLU) MG/DL 74-106 BLOOD UREA NITROGEN (test code = MG/DL 9-20 BUN) GLOMERULAR FILTRATION RATE (test code = GFR) CREATININE (test code = CREAT) MG/DL 0.66-1.25 CALCIUM (test code = CA) MG/DL 8.7-9.7 LIPID PROFILE (CORONARY RISK)2020-08-17 07:46:00 Test Item Value Reference Range Interpretation Comments TRIGLYCERIDES (test code = TRIG) MG/DL CHOLESTEROL (test code = CHOL) MG/DL <200 HDL CHOLESTEROL (test code = HDL) MG/DL 40-59 LIPOPROTEIN LDL (test code = LDL) MG/DL 0-99 [id number] 07:46:00 Test Item Value Reference Range Interpretation Comments MAGNESIUM (test code = MAG) MG/DL 1.6-2.3 PROTHROMBIN [id number] 07:40:00 Test Item Value Reference Range Interpretation Comments PROTHROMBIN TIME 12.1 SECONDS 9.4-12.5 N PATIENT (test code = PTP) INTERNATIONAL NORMAL 1.1 The INR is to be RATIO (test code = used only for INR) monitoring oral anticoagulantth erap y. INDICATION I NR VALUE ---- ---- ---- -------1. Prophylaxis, de ep venous thrombos is, including hig h risk surgery. 2.0 - 3.0 2. Prophylaxis, de ep venous thrombos is, hip surgery, treatment for d eep venous thrombosis or pulmonary prevention of systemic emboli sm in patients wit h valvular heart disease, atrial fibrillation, tissue heart va lve, or acute myocar dial infarction. 2.0 - 3 .0 3. Mechanical prosthesis hear t valves, recurrent syste [place]anna embolism. 3.0 - 4.5 PTT [id number] 07:40:00 Test Item Value Reference Range Interpretation Comments PTT ACTIVATED (test code = APTT) 32.1 SECONDS 25.1-36.5 N CBC W/AUTO [id number] 07:24:00 Test Item Value Reference Range Interpretation Comments WHITE BLOOD CELL (test code = 7.7 K/MM3 3.8-9.8 N WBC) RED BLOOD CELL (test code = 4.35 M/MM3 3.95-5.67 N RBC) HEMOGLOBIN (test code = HGB) 12.7 G/DL 12.4-16.7 N HEMATOCRIT (test code = HCT) 40.3 % 35.9-49.5 N MEAN CELL VOLUME (test code = 93 fL 81.7-96.1 N MCV) MEAN CELL HGB (test code = MCH) 29.2 pg 27.6-33.2 N MEAN CELL HGB CONCETRATION 31.5 % 32.9-35.5 L (test code = MCHC) RED CELL DISTRIBUTION WIDTH 12.8 % 12.1-15.2 N (test code = RDW) PLATELET COUNT (test code = 289 K/MM3 129-368 N PLT) MEAN PLATELET VOLUME (test code 8.6 fl 7.4-10.4 N = MPV) NEUTROPHIL % (test code = NT%) 59.3 % 43-75 N IMMATURE GRANULOCYTE % (test 0.4 % 0.0-2.0 N code = IG%) LYMPHOCYTE % (test code = LY%) 29.6 % 14-44 N MONOCYTE % (test code = MO%) 8.5 % 4-13 N EOSINOPHIL % (test code = EO%) 1.7 % 0-6 N BASOPHIL % (test code = BA%) 0.5 % 0-2 N NUCLEATED RBC % (test code = 0.0 % 0-1.0 N NRBC%) NEUTROPHIL # (test code = NT#) 4.59 K/mm3 2.0-7.6 N IMMATURE GRANULOCYTE # (test 0.03 x10 3/uL 0-0.03 N code = IG#) LYMPHOCYTE # (test code = LY#) 2.29 K/mm3 1.0-3.8 N MONOCYTE # (test code = MO#) 0.66 K/mm3 0.1-0.8 N EOSINOPHIL # (test code = EO#) 0.13 K/mm3 0.0-0.2 N BASOPHIL # (test code = BA#) 0.04 K/mm3 0.0-0.2 N NUCLEATED RBC # (test code = 0.00 K/mm3 0.0-0.1 N NRBC#) COVID 19 Asymptomatic IH [id number] 06:17:00 Test Item Value Reference Range Interpretation Comments COVID 19 NEGATIVE Negative "Negative resul ts from Asymptomatic IH AG patients with symptom (test code = onset beyondfiv e days, COVNONPUIAG) should be isamar lokesh as presumptive, andconfirmation with a molecular assay , if necessary forpa tient management may be performed. Nega tive results do notr ule out COVID-19 and sh ould not be used as the sole basisfor treatm ent or patient managem ent decisions, includinginfect ion control decisio ns. Negative result s should beconsidered in the context of a pa tients recent exposure s,history, and the presenc e of clinical signs and symptomsconsist ent with COVID-19.This t est detects both vi able andnon-viable S ARS-CoV and SARS CoV-2. Test performance dep endson the amount of virus (antigen) in the sample."
[2020-09-07 15:08] LABS: Absolute Lymphocytes (CBC) 1.6 K/uL (0.7-4.9); Basophils % 0.6 % (0-1.3); Hematocrit 29.6 % (39.6-49.0); Lymphocytes % 14.7 % (15.3-44.8); MPV 6.3 fL (7.6-11.3); RBC Red Blood Cell Count 3.32 M/uL (4.33-5.43)
[2020-09-07] MEDS ORDERED: NA CHLORIDE 0.9% 1,000 ML ONE (15:08)
[2020-09-07 15:09] LABS: Protime INR 1.12
--- NOTE | 2020-09-07 15:11 | RAD REPORT ---
EXAM DESCRIPTION: Ash[place] Single View09/07/2020 2:25 pm CLINICAL HISTORY: Shortness of breath COMPARISON: 2019 FINDINGS: The left base is hazy. The right lung appears clear of acute infiltrate. The heart is upper limits normal size. Postsurgical changes involve the chest. IMPRESSION: The left base is hazy probably a combination of small pleural effusion and atelectasis
[2020-09-07 15:27] LABS: ALT/SGPT 37 U/L (12-78); AST/SGOT 22 U/L (15-37); Albumin 2.9 g/dL (3.4-5.0); Alkaline Phosphatase 144 U/L (45-117); BUN Blood Urea Nitrogen 24 mg/dL (7-18); Bicarbonate 30 mmol/L (21-32); Bilirubin Direct 0.3 mg/dL (0-0.2); Bilirubin Total 0.8 mg/dL (0.2-1.0); Glucose Level 135 mg/dL (74-106); Magnesium 2.4 mg/dL (1.8-2.4); NT PRO-BNP 2709 pg/mL (<450); Potassium 4.3 mmol/L (3.5-5.1); Protein, Total 6.6 g/dL (6.4-8.2); Sodium Level 132 mmol/L (136-145); Troponin (Emerg Dept Use Only) < 0.02 ng/mL (0.0-0.045)
--- NOTE | 2020-09-07 16:31 | ER ---
Nurse's Notes [facility] Name: Dayne Medley Age: 80 yrs Sex: Male : 1940 Arrival Date: 09/07/2020 Time: 13:56 Bed 6 Private MD: Anup Garcia V Diagnosis: Dyspnea;Anemia, unspecified;Bradycardia, unspecified;Edema, unspecified Presentation: 09/07 14:06 Chief complaint: Patient states: Episodic SOB at rest that resolves in 2 - 3 minutes ca1 started 2 days ago. Denies cough. Denies chest pain. 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 Montalvo. Coronavirus screen: Client denies travel out of the [place] in the last 14 days. shortness of breath, Client presents with at least one sign or symptom that may indicate coronavirus-19. Standard/surgical mask placed on the client. Provider contacted for isolation considerations. The client reports previous COVID testing was negative. Date of collection: August 25, 2020. Ebola Screen: Patient negative for fever greater than or equal to 101.5 degrees Fahrenheit, and additional compatible Ebola Virus Disease symptoms Patient denies exposure to infectious person. Patient denies travel to an Ebola-affected area in the 21 days before illness onset. No symptoms or risks identified at this time. Initial Sepsis Screen: Does the patient meet any 2 criteria? No. Patient's initial sepsis screen is negative. Does the patient have a suspected source of infection? No. Patient's initial sepsis screen is negative. Risk Assessment: Do you want to hurt yourself or someone else? Patient reports no desire to harm self or others. Onset of symptoms was September 07, 2020. 14:06 Method Of Arrival: Wheelchair ca1 14:06 Acuity: CHARLA 2 ca1 Triage Assessment: 14:29 General: Appears in no apparent distress. comfortable, Behavior is calm, cooperative, ca1 appropriate for age. Pain: Denies pain. EENT: No signs and/or symptoms were reported regarding the EENT system. Neuro: Level of Consciousness is awake, alert, obeys commands, Oriented to person, place, time, situation. Cardiovascular: Heart tones S1 S2 present Capillary refill < 3 seconds Patient's skin is warm and dry. Rhythm is sinus bradycardia. Respiratory: Reports shortness of breath at rest since 2 days. Respiratory: Airway is patent Respiratory effort is even, unlabored, Respiratory pattern is regular, symmetrical, Breath sounds are clear bilaterally. GI: : No signs and/or symptoms were reported regarding the genitourinary system. Derm: Skin is intact, is healthy with good turgor, Skin is pink, warm \T\ dry. Post surgery Dressing on chest, dry and intact. Musculoskeletal: Circulation, motion, and sensation intact. Capillary refill < 3 seconds. Historical: - Allergies: 14:29 No Known Allergies; ca1 - Home Meds: 14:29 amiodarone 200 mg Oral tab 1 tab once daily [Active]; aspirin 81 mg Oral chew 1 tab ca1 once daily [Active]; atorvastatin 40 mg oral tab 1 tab once daily [Active]; clopidogrel 75 mg oral tab 1 tab once daily [Active]; digoxin 125 mcg Oral tab 1 tab once daily [Active]; docusate sodium 100 mg Oral cap 1 cap 2 times per day [Active]; famotidine 20 mg Oral tab 1 tab 2 times per day [Active]; ferrous sulfate 325 mg (65 mg iron) Oral tab twice a day [Active]; glimepiride 2 mg Oral tab 1 tab once daily [Active]; metoprolol tartrate 25 mg Oral tab 1 tab 2 times per day [Active]; potassium chloride 10 mEq Oral cpER 1 cap once daily [Active]; - PMHx: 14:29 Hypertension; High Cholesterol; CAD; Heart Rhythm Problems; ca1 - PSHx: 14:29 Knee surgery; prostatectomy; Cataracts; CABG; ca1 - Immunization history:: Adult Immunizations up to date, Flu vaccine is not up to date. - Social history:: Smoking status: Patient denies any tobacco usage or history of. Screenin:31 Abuse screen: Denies threats or abuse. Denies injuries from another. Nutritional ca1 screening: No deficits noted. Tuberculosis screening: No symptoms or risk factors identified. Fall Risk IV access (20 points). Ambulatory Aid- Crutches/Cane/Walker (15 pts). Total Humphreys Fall Scale indicates Low Risk Score (25-44 pts). Fall prevention measures have been instituted. Side Rails Up X 2 Family Present and informed to notify staff if they need to leave bedside As available Patient and Family Educated on Fall Prevention Program and strategies. Assessment: 14:31 Reassessment: See triage notes. Cardiovascular: Heart tones S1 S2 present Capillary ca1 refill < 3 seconds Patient's skin is warm and dry. Rhythm is sinus bradycardia. Respiratory: Airway is patent Respiratory effort is even, unlabored, Respiratory pattern is regular, symmetrical. 15:30 Reassessment: Patient appears in no apparent distress at this time. Patient and/or ca1 family updated on plan of care and expected duration. Pain level reassessed. Patient is alert, oriented x 3, equal unlabored respirations, skin warm/dry/pink. 16:30 Reassessment: Patient appears in no apparent distress at this time. Patient and/or ca1 family updated on plan of care and expected duration. Pain level reassessed. Patient is alert, oriented x 3, equal unlabored respirations, skin warm/dry/pink. 17:32 Reassessment: Patient appears in no apparent distress at this time. Patient and/or ca1 family updated on plan of care and expected duration. Pain level reassessed. Patient is alert, oriented x 3, equal unlabored respirations, skin warm/dry/pink. 19:34 General: Appears in no apparent distress. Behavior is appropriate for age. Pain: Denies lp1 pain. Neuro: Level of Consciousness is awake, alert, obeys commands, Oriented to person, place, time, situation. Cardiovascular: Patient's skin is warm and dry. Respiratory: Respiratory effort is even, unlabored. GI: Abdomen is obese. : No signs and/or symptoms were reported regarding the genitourinary system. EENT: No signs and/or symptoms were reported regarding the EENT system. Derm: Skin is intact, Skin is dry, Skin is pale. Musculoskeletal: No deficits noted. 19:35 Reassessment: Patient and family at bedside aware of pending transfer. lp1 20:40 Reassessment: Patient appears in no apparent distress at this time. Patient and/or lp1 family updated on plan of care and expected duration. Pain level reassessed. family at bedside requesting to have patient take home medications at this time; Per Dr. Corona, hold on taking home medications. 22:02 Reassessment: Report given to FORREST Kolb for patient transfer to [facility] 434. lp1 22:15 Reassessment: Patient resting, eyes closed, respirations unlabored; family at bedside. lp1 22:51 Reassessment: EMS at bedside for transfer. lp1 Vital Signs: 14:06 BP 156 / 70; Pulse 44; Resp 19 S; Temp 97.8(TE); Pulse Ox 99% on R/A; Weight 114.31 kg ca1 (R); Height 5 ft. 9 in. (175.26 cm) (R); Pain 0/10; 15:28 BP 131 / 67; Pulse 44; Resp 22; Temp 97.5(TE); Pulse Ox 100% on R/A; mh5 16:30 BP 160 / 65; Pulse 42; Resp 15 S; Pulse Ox 100% on 2 lpm NC; ca1 17:32 BP 147 / 63; Pulse 42; Resp 16 S; Pulse Ox 100% on 2 lpm NC; ca1 19:35 BP 104 / 56; Pulse 50; Resp 13; Pulse Ox 100% on 2 lpm NC; lp1 20:30 BP 103 / 51; Pulse 50; Resp 13; Pulse Ox 100% on 2 lpm NC; lp1 21:00 BP 102 / 50; Pulse 51; Resp 13; Pulse Ox 100% on 2 lpm NC; lp1 21:30 BP 110 / 56; Pulse 51; Resp 14; Pulse Ox 99% on 2 lpm NC; lp1 22:45 BP 108 / 59; Pulse 51; Resp 19; Pulse Ox 100% on 2 lpm NC; Pain 0/10; lp1 14:06 Body Mass Index 37.21 (114.31 kg, 175.26 cm) ca1 ED Course: 13:56 Patient arrived in ED. ag5 13:57 Anup Garcia MD is Private Physician. ag5 14:05 Luis Yeung MD is Attending Physician. emelina 14:07 Luis Stanley PA is PHCP. cp 14:16 Lyndsey Bolden, FORREST is Primary Nurse. ca1 14:19 Triage completed. ca1 14:27 Chest Single View In Process Unspecified. EDMS 14:29 Arm band placed on right wrist. ca1 14:31 Patient has correct armband on for positive identification. Placed in gown. Bed in low ca1 position. Call light in reach. Side rails up X2. senior qa tester on. Pulse ox on. NIBP on. Warm blanket given. 14:32 Oxygen administration via nasal cannula \T\ 2L/min Response to oxygen therapy: symptoms ca1 improved. 14:45 Flu Sent. mh5 14:50 Inserted saline lock: 20 gauge in right antecubital area, using aseptic technique. ca1 Blood collected. 14:50 Initial lab(s) drawn, by me, sent to lab. First set of blood cultures drawn by me. ca1 16:23 [facility] Transfer center contacted to initiate transfer to [facility] per Dr. paz Sinclair. art coordinator advised me that she would forward the transfer information to the Calender Inspector for further coordination. 18:39 [facility] Transfer center called to follow up on initial call, negative contact with facility em1 after a 10 minute wait on hold, will attempt to call again in 10 minutes. 19:14 per [facility] transfer center waiting for bed assignment, could not give me ETA. [facility] 19:35 No provider procedures requiring assistance completed. lp1 21:23 Per [facility] transfer center they have not received a call from the House Sup from [address] Attempting to call House sup to get an update. 22:57 Patient transferred, IV remains in place. lp1 Administered Medications: 15:01 Drug: NS 0.9% 1000 ml Route: IV; Rate: 125 ml/hr; Site: right antecubital; ca1 22:58 Follow up: IV Status: IV converted to saline lock lp1 16:28 Drug: Pepcid 20 mg Route: IVP; Site: right antecubital; ca1 16:30 Drug: Lovenox 90 mg Route: Sub-Q; Site: right lower abdomen; ca1 Outcome: 16:29 ER care complete, transfer ordered by . emelina 19:35 Condition: stable lp1 19:35 Instructed on the need for transfer. 22:57 Transferred by ground EMS to other acute care facility: [facility]. Transfer form lp1 completed. X-rays sent w/ patient. 23:04 Patient left the ED. lp1 Signatures: Dispatcher [employer] EDMS Luis Yeung MD MD cha Martinez, Eric 1 Ivone Bateman, FORREST RN lp1 Luis Stanley PA PA cp Martinez, Maria [facility] Adelaide Mayes [facility] Lyndsey Bolden RN RN ca1 Ray Betancourt 5 Corrections: (The following items were deleted from the chart) 14:33 14:29 Derm: Skin is intact, is healthy with good turgor, Skin is pink, warm \T\ dry. ca1 ca1 20:35 19:14 per [facility] transfer center waiting for bed assignment ar5 ar5 21:27 21:24 Reassessment: Patient appears in no apparent distress at this time. Patient lp1 and/or family updated on plan of care and expected duration. Pain level reassessed. family at bedside requesting to have patient take home medications at this time; Per Dr. Dixon lp1 21:40 14:45 CORONAVIRUS+MR.SHEILA.JYOTI drawn and sent. [address]
--- NOTE | 2020-09-07 16:31 | EDPHYS ---
Physician Documentation [facility] Name: Dayne Medley Age: 80 yrs Sex: Male : 1940 Arrival Date: 09/07/2020 Time: 13:56 Bed 6 Private MD: Anup Garcia V ED Physician Luis Yeung HPI: 09/07 16:03 This 80 yrs old Male presents to ER via Wheelchair with complaints of emelina Shortness Of Breath. 16:03 The patient has shortness of breath at rest. Onset: The symptoms/episode began/occurred emelina 3 day(s) ago. Duration: The symptoms are intermittent, with no pattern. The patient's shortness of breath has no apparent modifying factors. Associated signs and symptoms: Pertinent positives: non-productive cough. Severity of symptoms: At their worst the symptoms were moderate in the emergency department the symptoms have resolved and did so just prior to arrival. The patient has experienced similar episodes in the past, multiple times. Historical: - Allergies: 14:29 No Known Allergies; ca1 - Home Meds: 14:29 amiodarone 200 mg Oral tab 1 tab once daily [Active]; aspirin 81 mg Oral chew 1 tab ca1 once daily [Active]; atorvastatin 40 mg oral tab 1 tab once daily [Active]; clopidogrel 75 mg oral tab 1 tab once daily [Active]; digoxin 125 mcg Oral tab 1 tab once daily [Active]; docusate sodium 100 mg Oral cap 1 cap 2 times per day [Active]; famotidine 20 mg Oral tab 1 tab 2 times per day [Active]; ferrous sulfate 325 mg (65 mg iron) Oral tab twice a day [Active]; glimepiride 2 mg Oral tab 1 tab once daily [Active]; metoprolol tartrate 25 mg Oral tab 1 tab 2 times per day [Active]; potassium chloride 10 mEq Oral cpER 1 cap once daily [Active]; - PMHx: 14:29 Hypertension; High Cholesterol; CAD; Heart Rhythm Problems; ca1 - PSHx: 14:29 Knee surgery; prostatectomy; Cataracts; CABG; ca1 - Immunization history:: Adult Immunizations up to date, Flu vaccine is not up to date. - Social history:: Smoking status: Patient denies any tobacco usage or history of. ROS: 16:04 Constitutional: Negative for fever, chills, and weight loss, Eyes: Negative for injury, emelina pain, redness, and discharge, ENT: Negative for injury, pain, and discharge, Neck: Negative for injury, pain, and swelling, Cardiovascular: Negative for chest pain, palpitations, and edema, Abdomen/GI: Negative for abdominal pain, nausea, vomiting, diarrhea, and constipation, Back: Negative for injury and pain, : Negative for injury, bleeding, discharge, and swelling, MS/Extremity: Negative for injury and deformity, Skin: Negative for injury, rash, and discoloration, Neuro: Negative for headache, weakness, numbness, tingling, and seizure, Psych: Negative for depression, anxiety, suicide ideation, homicidal ideation, and hallucinations, Allergy/Immunology: Negative for hives, rash, and allergies, Endocrine: Negative for neck swelling, polydipsia, polyuria, polyphagia, and marked weight changes, Hematologic/Lymphatic: Negative for swollen nodes, abnormal bleeding, and unusual bruising. 16:04 Respiratory: Positive for shortness of breath. 16:04 MS/extremity: Positive for swelling, tenderness, of the right leg. Exam: 16:04 Constitutional: This is a well developed, well nourished patient who is awake, alert, emelina and in no acute distress. Head/Face: Normocephalic, atraumatic. Eyes: Pupils equal round and reactive to light, extra-ocular motions intact. Lids and lashes normal. Conjunctiva and sclera are non-icteric and not injected. Cornea within normal limits. Periorbital areas with no swelling, redness, or edema. ENT: Nares patent. No nasal discharge, no septal abnormalities noted. Tympanic membranes are normal and external auditory canals are clear. Oropharynx with no redness, swelling, or masses, exudates, or evidence of obstruction, uvula midline. Mucous membranes moist. Neck: Trachea midline, no thyromegaly or masses palpated, and no cervical lymphadenopathy. Supple, full range of motion without nuchal rigidity, or vertebral point tenderness. No Meningismus. Chest/axilla: Normal chest wall appearance and motion. Nontender with no deformity. No lesions are appreciated. Respiratory: Lungs have equal breath sounds bilaterally, clear to auscultation and percussion. No rales, rhonchi or wheezes noted. No increased work of breathing, no retractions or nasal flaring. Abdomen/GI: Soft, non-tender, with normal bowel sounds. No distension or tympany. No guarding or rebound. No evidence of tenderness throughout. Back: No spinal tenderness. No costovertebral tenderness. Full range of motion. Male : Normal genitalia with no discharge or lesions. Neuro: Awake and alert, GCS 15, oriented to person, place, time, and situation. Cranial nerves II-XII grossly intact. Motor strength 5/5 in all extremities. Sensory grossly intact. Cerebellar exam normal. Normal gait. Psych: Awake, alert, with orientation to person, place and time. Behavior, mood, and affect are within normal limits. 16:04 Cardiovascular: Rate: bradycardic, Rhythm: Heart sounds: normal, Edema: is not appreciated, JVD: is not appreciated. 16:04 Musculoskeletal/extremity: ROM: full active range of motion, full passive range of motion, Circulation is intact in all extremities. Sensation intact. Compartment Syndrome exam of affected extremity: is normal. DVT Exam: negative Homans' sign noted on exam, no appreciated bluish discoloration, no erythema, no increased warmth, pain, swelling, tenderness. 16:04 Skin: Appearance: Color: pale, Temperature: normal temperature, Moisture: normal moisture, petechiae, not noted, ecchymosis, not noted, of the right leg, cellulitis, is not appreciated, induration, is not appreciated, injury, is not appreciated. 16:04 Neuro: Orientation: is normal, appropriate for stated age, no acute changes, Mentation: is normal, appropriate for stated age, no acute changes, Memory: is normal, appropriate for stated age, no acute changes, Cranial nerves: grossly normal, is grossly normal based on the patient's age, no acute changes, Cerebellar function: is grossly normal, is grossly normal based on the patient's age, no acute changes, Motor: is grossly normal based on the patient's age, no acute changes, moves all fours, strength is 5/5 in all extremities, Sensation: no obvious gross deficits, Gait: not tested. Deep tendon reflexes are 2+ (normal) in the bilateral brachioradialis, bicep, tricep and patellar and Achilles tendons. Vital Signs: 14:06 BP 156 / 70; Pulse 44; Resp 19 S; Temp 97.8(TE); Pulse Ox 99% on R/A; Weight 114.31 kg ca1 (R); Height 5 ft. 9 in. (175.26 cm) (R); Pain 0/10; 15:28 BP 131 / 67; Pulse 44; Resp 22; Temp 97.5(TE); Pulse Ox 100% on R/A; mh5 16:30 BP 160 / 65; Pulse 42; Resp 15 S; Pulse Ox 100% on 2 lpm NC; ca1 17:32 BP 147 / 63; Pulse 42; Resp 16 S; Pulse Ox 100% on 2 lpm NC; ca1 19:35 BP 104 / 56; Pulse 50; Resp 13; Pulse Ox 100% on 2 lpm NC; lp1 20:30 BP 103 / 51; Pulse 50; Resp 13; Pulse Ox 100% on 2 lpm NC; lp1 21:00 BP 102 / 50; Pulse 51; Resp 13; Pulse Ox 100% on 2 lpm NC; lp1 21:30 BP 110 / 56; Pulse 51; Resp 14; Pulse Ox 99% on 2 lpm NC; lp1 22:45 BP 108 / 59; Pulse 51; Resp 19; Pulse Ox 100% on 2 lpm NC; Pain 0/10; lp1 14:06 Body Mass Index 37.21 (114.31 kg, 175.26 cm) ca1 MDM: 14:06 Patient medically screened. emelina 16:10 Differential diagnosis: Anemia asthma, Bronchitis CHF exacerbation, Myocardial emelina Infarction Pneumothorax pulmonary edema, Pulmonary Embolism reactive airway disease, Sepsis. Antibiotic administration: Not indicated. The patient's Wells Deep Vein Thrombosis Score was calculated as follows: Imm/Surg in last 4 wks (1.5 Pts). The patient's pulmonary embolism risk score was calculated as follows: patient has experienced immobilization or surgery in the last four weeks (1.5 Pts) Total Score: 0-2 points. This patient was found to be at low risk for a pulmonary embolism by using the Well's assessment criteria. Immunization status: Pneumococcal vaccine: Influenza vaccine: Data reviewed: vital signs, nurses notes, lab test result(s), EKG, radiologic studies, CT scan, plain films. Data interpreted: pvc monitor: rate is 44 beats/min, rhythm is regular. Test interpretation: by ED physician or midlevel provider: ECG, plain radiologic studies. Counseling: I had a detailed discussion with the patient and/or guardian regarding: the historical points, exam findings, and any diagnostic results supporting the discharge/admit diagnosis, lab results, radiology results, the need to transfer to another facility. 16:10 Other consultation: timothy friend and lola carballo at [facility]. [facility] 09/07 14:08 Order name: Basic Metabolic Panel; Complete Time: 15:33 [facility] 09/07 14:08 Order name: CBC with Diff; Complete Time: 15:23 [facility] 09/07 14:08 Order name: LFT's; Complete Time: 15:33 [facility] 09/07 14:08 Order name: Magnesium; Complete Time: 15:33 [facility] 09/07 14:08 Order name: NT PRO-BNP; Complete Time: 15:33 [facility] 09/07 14:08 Order name: PT-INR; Complete Time: 15:23 [facility] 09/07 14:08 Order name: Troponin (emerg Dept Use Only); Complete Time: 15:33 [facility] 09/07 14:08 Order name: Blood Culture Adult (2) [facility] 09/07 14:08 Order name: Flu; Complete Time: 15:33 [facility] 09/07 15:36 Order name: Digoxin; Complete Time: 17:23 [facility] 09/07 16:03 Order name: Urine Dipstick--Ancillary (enter results); Complete Time: 17:23 em 09/07 22:37 Order name: SARS-COV-2 RT PCR [facility] 09/07 14:08 Order name: EKG; Complete Time: 14:44 [facility] 09/07 14:08 Order name: Cardiac monitoring; Complete Time: 14:33 [facility] 09/07 14:08 Order name: EKG - Nurse/Tech; Complete Time: 14:33 [facility] 09/07 14:08 Order name: IV Saline Lock; Complete Time: 14:52 [facility] 09/07 14:08 Order name: Labs collected and sent; Complete Time: 14:52 [facility] 09/07 14:08 Order name: O2 Per Protocol; Complete Time: 14:33 [facility] 09/07 14:08 Order name: O2 Sat Monitoring; Complete Time: 14:33 [facility] 09/07 14:08 Order name: Urine Dipstick-Ancillary (obtain specimen); Complete Time: 15:27 [facility] 09/07 14:11 Order name: Chest Single View; Complete Time: 15:23 EDMS Administered Medications: 15:01 Drug: NS 0.9% 1000 ml Route: IV; Rate: 125 ml/hr; Site: right antecubital; ca1 22:58 Follow up: IV Status: IV converted to saline lock lp1 16:28 Drug: Pepcid 20 mg Route: IVP; Site: right antecubital; ca1 16:30 Drug: Lovenox 90 mg Route: Sub-Q; Site: right lower abdomen; ca1 Disposition: 09/07/20 16:29 Transfer ordered to Other Acute Care Facility. Diagnosis are Dyspnea, Anemia, unspecified, Bradycardia, unspecified, Edema, unspecified. - Reason for transfer: Higher level of care. - Accepting physician is to [facility]. - Condition is Fair. - Problem is new. - Symptoms have improved. Signatures: Dispatcher [employer] EDMS Luis Yeung MD MD cha Pena, Laura, RN RN lp1 Lyndsey Bolden RN RN ca1 Corrections: (The following items were deleted from the chart) 14:55 14:44 Chest Single View+RAD.RAD.BRZ ordered. EDIN EDMS 21:40 14:44 CORONAVIRUS+MR.LAB.BRZ ordered. EDIN EDMS 23:04 16:29 09/07/2020 16:29 Transfer ordered to Other Acute Care Facility. Diagnosis is lp1 Dyspnea; Anemia, unspecified; Bradycardia, unspecified; Edema, unspecified. Reason for transfer: Higher level of care. Accepting physician is to [facility]. Condition is Fair. Problem is new. Symptoms have improved. emelina
[2020-09-07] MEDS ORDERED: ENOXAPARIN 100 MG/ML SYR SQ ONE (16:38)
[2020-09-07] MEDS ORDERED: FAMOTIDINE 20 MG/2 ML VIAL IV ONE (16:38)
[2020-09-07 17:19] LABS: Urine Blood NEGATIVE (NEG); Urine Glucose NEGATIVE (NEG); Urine Protein NEGATIVE (NEG); Urine Specific Gravity 1.015 (1.005-1.030)
[2020-09-07 23:26] VITALS: TEMP 97.5
[2020-09-07 23:40] VITALS: BP 108/59; O2SAT 100
--- NOTE | 2020-09-08 10:12 | EKG ---
Test Date: 2020-09-07 Test Time: 14:30:19 Production Support Engineer: JOSE MEASUREMENT RESULTS: Intervals: Rate: 44 SC: 196 QRSD: 130 QT: 562 QTc: 480 Jackson: P: 7 SC: 196 QRS: -59 T: -18 INTERPRETIVE STATEMENTS: Marked sinus bradycardia Right bundle branch block Left anterior fascicular block Bifascicular block Abnormal ECG Compared to ECG 06/04/2014 13:58:25 Sinus rhythm no longer present Ventricular premature complex(es) no longer present Bifascicular block still present Electronically Signed On 09-08-20 10:10:14 [employer] by Lopez Thibodeaux
== END 2020-09-07 23:04 ==
LOC: ER 13:53
DX: D64.9 Anemia, unspecified (principal); R00.1 Bradycardia, unspecified; R60.9 Edema, unspecified; Z20.828 Contact with and (suspected) exposure to other viral communicable diseases; I10 Essential (primary) hypertension; E78.00 Pure hypercholesterolemia, unspecified; I25.10 Atherosclerotic heart disease of native coronary artery without angina pectoris; Z95.1 Presence of aortocoronary bypass graft; Z79.82 Long term (current) use of aspirin
CPT/HCPCS: 96361; 93005; 87040 ×2; 85025; 80048; 36415; 83735; 85610; 80162; 80076; 81003; 84484; 83880; 87804 ×2; 71045; 96372; 96374; 99285; U0003; J1650; J7030

== ENCOUNTER → 2024-01-04 | Emergency (ER) | payer OTHER ==
[~2024-01-04] MED LIST: FAMOTIDINE 20 MG/2 ML VIAL IV ONE; FENTANYL CITR 100 MCG/2 ML ONE; MORPHINE 4 MG/ML SYR ONE; ONDANSETRON 4 MG/2 ML VIAL ONE
[2024-01-04 16:17] LABS: Absolute Lymphocytes (CBC) 2.6 K/uL (0.7-4.9); Hematocrit 36.1 % (39.6-49.0); Lymphocytes % 31.7 % (15.3-44.8); MCV 88.8 fL (80-100); MPV 6.3 fL (7.6-11.3); Platelets 306 thou/uL (152-406); RBC Red Blood Cell Count 4.07 M/uL (4.33-5.43)
--- NOTE | 2024-01-04 16:24 | RAD REPORT ---
EXAM DESCRIPTION: RAD - Chest Single View - 01/04/2024 3:59 pm CLINICAL HISTORY: CHEST PAIN COMPARISON: Chest Pa And Lat (2 Views) dated 03/20/2022; Chest Single View dated 09/07/2020; CHEST PA AND LAT 2 VIEW dated 01/30/2016; ABDOMEN ACUTE SERIES dated 06/04/2014 FINDINGS: Lines: None. Lungs: No evidence of edema or pneumonia. Pleural: No significant pleural effusions or pneumothorax. Cardiac: The heart size is within normal limits. Mediastinum: Within normal limits. Bones: No acute fractures. Sternotomy. Other: None IMPRESSION: No acute cardiopulmonary disease.
[2024-01-04 16:38] LABS: Albumin 3.4 g/dL (3.4-5.0); Bilirubin Total 0.7 mg/dL (0.2-1.0); Potassium 4.3 mEq/L (3.5-5.1); Protein, Total 6.8 g/dL (6.4-8.2); Troponin High Sensitivity 6.6 pg/mL (<58.9)
--- NOTE | 2024-01-04 17:12 | RAD REPORT ---
EXAM DESCRIPTION: CT - Head Brain Wo Cont - 01/04/2024 5:04 pm CLINICAL HISTORY: PAIN COMPARISON: Head angio dated 11/12/2023; Head Brain Wo Cont dated 11/12/2023 TECHNIQUE: All CT scans are performed using dose optimization technique as appropriate and may inclu de automated exposure control or mA/KV adjustment according to patient size. FINDINGS: No intracranial hemorrhage, hydrocephalus or extra-axial fluid collection.No areas of brai n edema or evidence of midline shift. The paranasal sinuses and mastoids are clear. The calvarium is intact. IMPRESSION: No acute intracranial abnormality.
--- NOTE | 2024-01-04 17:32 | RAD REPORT ---
EXAM DESCRIPTION: CTAbdomen Pelvis W Contrast - 01/04/2024 5:06 pm CLINICAL HISTORY: ABD PAIN COMPARISON: CT ABD PELVIS W CONTRAST dated 06/04/2014 TECHNIQUE: CT of the abdomen and pelvis was performed. All CT scans are performed using dose optimization technique as appropriate and may include automated exposure control or mA/KV adjustment according to patient size. FINDINGS: Lower chest: Cardiomegaly. Coronary calcifications . Liver: No acute abnormality or suspicious lesions. Biliary: No biliary ductal dilatation. Stomach: No significant focal abnormality. Duodenum: No significant focal abnormality. Pancreas: No significant abnormality. Spleen: No significant abnormality. Adrenal: No suspicious lesions. Kidney/ureter: No hydronephrosis. No renal calculi. Retroperitoneum: No retroperitoneal adenopathy. Vascular: No aneurysm. Atherosclerosis. Bowel: Diverticulosis without diverticulitis.. Peritoneum: No ascites or free air. Bladder: Grossly unremarkable. Reproductive: Prostatectomy Bones: No acute fracture. Sternotomy. Multilevel degenerative changes are present in the spine. Other: n/a IMPRESSION: No acute intra-abdominal or pelvic finding.
--- NOTE | 2024-01-04 19:24 | ER ---
Nurse's Notes [facility] Name: Dayne Medley Age: 83 yrs Sex: Male : 1940 Arrival Date: 01/04/2024 Time: 15:14 Bed 18 Private MD: Diagnosis: Nausea with vomiting, unspecified;Abdominal pain, Generalized Presentation: 01/04 15:40 Chief complaint: Patient states: he has been having nausea and vomiting. patient ap3 reports his home medications are not alleviating his symptoms. patient also reports abdominal pain. Coronavirus screen: At this time, the client does not indicate any symptoms associated with coronavirus-19. Ebola Screen: No symptoms or risks identified at this time. Risk Assessment: Do you want to hurt yourself or someone else? Patient reports no desire to harm self or others. Onset of symptoms was January 04, 2024. Care prior to arrival: Medication(s) given: Phenergan, 12.5 mg, IV initiated. 20 GA, in the right hand. 15:40 Method Of Arrival: EMS: [facility] ap3 15:40 Acuity: CHARLA 3 ap3 19:57 Initial Sepsis Screen: Does the patient meet any 2 criteria? No. Patient's initial tm6 sepsis screen is negative. Does the patient have a suspected source of infection? No. Patient's initial sepsis screen is negative. Triage Assessment: 15:41 General: Appears uncomfortable, Behavior is cooperative, appropriate for age. Pain: ap3 Complains of pain in abdomen. Neuro: Level of Consciousness is awake, alert, obeys commands, Oriented to person, place, time, situation. Cardiovascular: Patient's skin is warm and dry. Respiratory: Airway is patent Respiratory effort is even, unlabored, Respiratory pattern is regular, symmetrical. GI: Reports lower abdominal pain, upper abdominal pain, nausea, vomiting. Historical: - Allergies: 15:41 No Known Allergies; ap3 - PMHx: 15:41 Atrial fibrillation; CAD; High Cholesterol; Hypertension; ap3 - Immunization history:: Adult Immunizations up to date. - Social history:: Smoking status: Patient denies any tobacco usage or history of. Patient/guardian denies using alcohol. Screenin:42 Abuse screen: Denies threats or abuse. Nutritional screening: No deficits noted. ap3 Tuberculosis screening: No symptoms or risk factors identified. 17:02 [facility] ED Fall Risk Assessment (Adult) History of falling in the last 3 months, ld1 including since admission No falls in past 3 months (0 pts). Assessment: 17:02 General: Appears in no apparent distress. uncomfortable, Behavior is cooperative, ld1 appropriate for age, anxious. Pain: Complains of pain in epigastric area Pain does not radiate. Pain currently is 10 out of 10 on a pain scale. Quality of pain is described as sharp, shooting, throbbing, Pain began 1 day ago. Is continuous. Neuro: Level of Consciousness is awake, alert, obeys commands, Oriented to person, place, time, situation. Cardiovascular: Capillary refill < 3 seconds Patient's skin is warm and dry. Rhythm is sinus rhythm. Respiratory: Airway is patent Respiratory effort is even, unlabored. GI: Abdomen is round non-distended, Reports upper abdominal pain. : No signs and/or symptoms were reported regarding the genitourinary system. EENT: No signs and/or symptoms were reported regarding the EENT system. Derm: No signs and/or symptoms reported regarding the dermatologic system. Musculoskeletal: No signs and/or symptoms reported regarding the musculoskeletal system. 18:29 Reassessment: Patient appears in no apparent distress at this time. Patient and/or ld1 family updated on plan of care and expected duration. Pain level reassessed. Pt reports pain medication helping abdominal pain. Patient states symptoms have improved. 19:56 Reassessment: Patient appears in no apparent distress at this time. Patient and/or tm6 family updated on plan of care and expected duration. Pain level reassessed. Patient is alert, oriented x 3, equal unlabored respirations, skin warm/dry/pink. Vital Signs: 16:00 BP 175 / 92; Pulse 54; Resp 23; Temp 98.4; Pulse Ox 95% on R/A; ap3 16:24 BP 145 / 80; Pulse 60; Pulse Ox 96% on R/A; ap3 16:24 Pain 7/10; ap3 18:29 BP 149 / 77; Pulse 57; Resp 18; Pulse Ox 99% on R/A; ld1 19:56 BP 135 / 74; Pulse 58; Resp 15; Temp 96.9(TE); Pulse Ox 98% on R/A; Pain 0/10; tm6 16:24 Pain Scale: Adult ap3 19:56 Pain Scale: Adult tm6 ED Course: 15:16 Patient arrived in ED. kb 15:17 [facility]C [facility] kb 15:17 Cortes Carbajal MD is Attending Physician. kb 15:25 EKG done, by ED staff, reviewed by Jess BRAGA. ap3 15:25 property assessment monitor on. Pulse ox on. NIBP on. ap3 15:41 Triage completed. ap3 15:42 Arm band placed on right wrist. ap3 15:42 Patient has correct armband on for positive identification. Bed in low position. Call ap3 light in reach. Side rails up X2. 16:00 Chest Single View XRAY In Process Unspecified. EDMS 17:02 No provider procedures requiring assistance completed. ld1 17:02 Maintain EMS IV. Dressing intact. Good blood return noted. Gauge \T\ site: 20g rac. ld1 17:02 Door closed. Warm blanket given. Pillow given. ld1 17:06 CT Head Brain wo Cont In Process Unspecified. EDMS 17:08 CT Abd/Pelvis - IV Contrast Only In Process Unspecified. EDMS 18:29 Tamara Moore, RN is Primary Nurse. ld1 19:57 IV discontinued, intact, bleeding controlled, No redness/swelling at site. Pressure tm6 dressing applied. 19:57 Provided Education on: zofran usage. tm6 Administered Medications: 15:52 Drug: Famotidine IVP 20 mg IVP once; dilute with 10 mL 0.9% NaCl; give over 2 minutes ap3 Route: IVP; Site: right hand; 15:52 Drug: Ondansetron IVP 4 mg IVP once; over 2 minutes Route: IVP; Site: right hand; ap3 16:24 Drug: morphine IVP or IV 4 mg IVP once over 4 mins Route: IVP; Infused Over: 4 mins; ap3 Site: right hand; 17:01 Drug: fentaNYL (PF) IVP 25 mcg IVP once Route: IVP; Site: right antecubital; ld1 Medication: 17:02 VIS not applicable for this client. ld1 Outcome: 19:24 Discharge ordered by . kb 19:56 Discharged to home via wheelchair, with family, tm6 19:56 Condition: stable 19:56 Discharge instructions given to patient, family, Instructed on discharge instructions, follow up and referral plans. medication usage, Demonstrated understanding of instructions, follow-up care, medications, Prescriptions given X 1, 19:57 Patient left the ED. tm6 Signatures: Dispatcher [employer] EDMS Jess Kilgore FNP-C FNP-Ckb Prokisch, Amanda, RN RN ap3 Tamara Moore RN RN ld1 Esther Ross RN RN tm6
--- NOTE | 2024-01-04 19:24 | EDPHYS ---
Physician Documentation [facility] Name: Dayne Medley Age: 83 yrs Sex: Male : 1940 Arrival Date: 01/04/2024 Time: 15:14 Bed 18 Private MD: ED Physician Cortes Carbajal HPI: 01/04 22:55 This 83 yrs old Male presents to ER via EMS with complaints of Nausea/Vomiting. kb 22:55 Pt is an 83 year old male who presents for nausea, vomiting and abd pain that started kb at 0600 this morning. Denies diarrrhea, fever. States this feels similar to previous episode of diverticulitis. is concerned about pituitary tumor. Historical: - Allergies: 15:41 No Known Allergies; ap3 - PMHx: 15:41 Atrial fibrillation; CAD; High Cholesterol; Hypertension; ap3 - Immunization history:: Adult Immunizations up to date. - Social history:: Smoking status: Patient denies any tobacco usage or history of. Patient/guardian denies using alcohol. ROS: 22:53 Constitutional: Negative for fever, chills, and weight loss, kb 22:53 Abdomen/GI: Positive for abdominal pain, nausea and vomiting, 22:53 All other systems are negative, Exam: 22:53 Constitutional: This is a well developed, well nourished patient who is awake, alert, kb and in no acute distress. Head/Face: Normocephalic, atraumatic. ENT: Moist Mucous membranes Cardiovascular: Regular rate Respiratory: Respirations even and unlabored. No increased work of breathing. Talking in full sentences Skin: Warm, dry with normal turgor. Normal color. MS/ Extremity: Pulses equal, no cyanosis. Neurovascular intact. Full, normal range of motion. Neuro: Awake and alert, GCS 15, oriented to person, place, time, and situation. Moves all extremities. Normal gait. 22:53 Abdomen/GI: Inspection: abdomen appears normal, Bowel sounds: normal, Palpation: soft, in all quadrants, mild abdominal tenderness, in the left upper quadrant and left lower quadrant, Vital Signs: 16:00 BP 175 / 92; Pulse 54; Resp 23; Temp 98.4; Pulse Ox 95% on R/A; ap3 16:24 BP 145 / 80; Pulse 60; Pulse Ox 96% on R/A; ap3 16:24 Pain 7/10; ap3 18:29 BP 149 / 77; Pulse 57; Resp 18; Pulse Ox 99% on R/A; ld1 19:56 BP 135 / 74; Pulse 58; Resp 15; Temp 96.9(TE); Pulse Ox 98% on R/A; Pain 0/10; tm6 16:24 Pain Scale: Adult ap3 19:56 Pain Scale: Adult tm6 MDM: 15:16 Patient medically screened. kb 22:53 Differential diagnosis: diverticulitis, gastroenteritis, colitis. Data reviewed: vital kb signs, nurses notes. Historians other than the Patient: EMS: [facility]. Counseling: I had a detailed discussion with the patient and/or guardian regarding the historical points, exam findings, and any diagnostic results supporting the discharge/admit diagnosis, lab results, radiology results, the need for outpatient follow up, a family practitioner, to return to the emergency department if symptoms worsen or persist or if there are any questions or concerns that arise at home. ED course: Pt states he is 1000X better after treatment and ready to go home. 01/04 15:17 Order name: CBC with Diff; Complete Time: 16:30 kb 01/04 15:17 Order name: CMP; Complete Time: 16:39 kb 01/04 15:17 Order name: Lipase; Complete Time: 16:39 kb 01/04 15:17 Order name: Troponin HS; Complete Time: 16:39 kb 01/04 15:17 Order name: CT Abd/Pelvis - IV Contrast Only; Complete Time: 17:41 kb 01/04 15:17 Order name: Chest Single View XRAY; Complete Time: 16:30 kb 01/04 16:10 Order name: CT Head Brain wo Cont; Complete Time: 17:14 kb 01/04 15:17 Order name: EKG; Complete Time: 15:18 kb 01/04 15:17 Order name: IV Saline Lock; Complete Time: 15:52 kb 01/04 15:17 Order name: Labs collected and sent; Complete Time: 16:00 kb 01/04 15:17 Order name: EKG - Nurse/Tech; Complete Time: 15:25 kb Administered Medications: 15:52 Drug: Famotidine IVP 20 mg IVP once; dilute with 10 mL 0.9% NaCl; give over 2 minutes ap3 Route: IVP; Site: right hand; 15:52 Drug: Ondansetron IVP 4 mg IVP once; over 2 minutes Route: IVP; Site: right hand; ap3 16:24 Drug: morphine IVP or IV 4 mg IVP once over 4 mins Route: IVP; Infused Over: 4 mins; ap3 Site: right hand; 17:01 Drug: fentaNYL (PF) IVP 25 mcg IVP once Route: IVP; Site: right antecubital; ld1 Disposition: 01/05 07:00 Co-signature as Attending Physician, Cortes Carbajal MD I reviewed the patient's care rn provided by the Advanced Practice Provider and agree with the diagnosis and treatment plan. Disposition Summary: 01/04/24 19:24 Discharge Ordered Notes: Location: Home kb Condition: Stable kb Diagnosis - Nausea with vomiting, unspecified kb - Abdominal pain, Generalized kb Followup: kb - With: Emergency Department - When: As needed - Reason: Worsening of condition Followup: kb - With: Private Physician - When: 2 - 3 days - Reason: Recheck today's complaints, Continuance of care, Re-evaluation by your physician Discharge Instructions: - Discharge Summary Sheet kb - Nausea and Vomiting, Adult, [id number] kb - Abdominal Pain, Adult, [id number] kb Forms: - Medication Reconciliation Form kb - Thank You Letter kb - Antibiotic Education kb - Prescription Opioid Use kb - Patient Portal Instructions kb - Leadership Thank You Letter kb Prescriptions: - ondansetron 4 mg Oral Tablet,disintegrating - take 1 tablet ORAL route every 6 hours As needed as needed for nausea and kb vomiting; 12 tablet; Refills: 0, Product Selection Permitted Signatures: Dispatcher [employer] EDUT Jess Kilgore, SALES SUPPORT ADMINISTRATOR-C SALES SUPPORT ADMINISTRATOR-Cortes Balderas MD MD rn Prokisch, Amanda, RN RN ap3 Tamara Moore RN RN ld1 Corrections: (The following items were deleted from the chart) 01/04 22:57 22:55 Pt is an 83 year old male who presents for nausea, vomiting and abd pain that kb started at 0600 this morning. Denies diarrrhea, fever. States this feels similar to previous episode of diverticulitis. kb
[2024-01-04 20:33] VITALS: BP 135/74; TEMP 96.9; O2SAT 98
== END ==
LOC: ER 15:14
DX: R11.2 Nausea with vomiting, unspecified (principal); R10.84 Generalized abdominal pain; I10 Essential (primary) hypertension; E78.00 Pure hypercholesterolemia, unspecified
CPT/HCPCS: 85025; 36415; 84484; 83690; 80053; 70450; 74177; 71045; Q9967; J3010; J2405; 93005

== ENCOUNTER 2024-02-04 17:19 | Emergency (ER) | payer OTHER ==
[2024-02-04] MEDS ORDERED: ONDANSETRON 4 MG/2 ML VIAL ONE ×2 (17:55→20:06)
[2024-02-04] MEDS ORDERED: FENTANYL CITR 100 MCG/2 ML ONE ×2 (17:56→18:29)
[2024-02-04] MEDS ORDERED: FAMOTIDINE 20 MG/2 ML VIAL IV ONE (17:56)
[2024-02-04 18:00] LABS: Absolute Lymphocytes (CBC) 2.1 K/uL (0.7-4.9); Absolute Monocytes 0.4 K/uL (0.1-1.3); Absolute Neutrophil 5.1 K/uL (1.8-8.0); Basophils % 0.6 % (0-1.3); Eosinophils % 0.6 % (0-4.4); Hematocrit 33.9 % (39.6-49.0); Hemoglobin 11.4 g/dL (13.6-17.9); Lymphocytes % 27.8 % (15.3-44.8); MCHC 33.7 g/dL (32.0-36.0); MCV 88.9 fL (80-100); MPV 6.3 fL (7.6-11.3); Monocytes % 5.1 % (3.3-12.3); Neutrophils % 65.9 % (41.7-73.7); Platelets 348 thou/uL (152-406); RBC Red Blood Cell Count 3.82 M/uL (4.33-5.43); Red Cell Distribution Width 15.6 % (12.1-15.2)
[2024-02-04 18:17] LABS: Albumin 3.3 g/dL (3.4-5.0); Anion Gap 11.4 mEq/L (5.0-15.0); Bilirubin Total 0.7 mg/dL (0.2-1.0); Globulin 3.2 g/dL (2.3-3.5); Potassium 4.4 mEq/L (3.5-5.1); Protein, Total 6.5 g/dL (6.4-8.2)
--- NOTE | 2024-02-04 19:15 | RAD REPORT ---
EXAM DESCRIPTION: CTAbdomen Pelvis W Contrast - 02/04/2024 6:56 pm CLINICAL HISTORY: Abdominal pain. ABD PAIN COMPARISON: <Comparisons> TECHNIQUE: Biphasic CT imaging of the abdomen and pelvis was performed with 100 ml non-ionic IV cont rast. All CT scans are performed using dose optimization technique as appropriate and may include automated exposure control or mA/KV adjustment according to patient size. FINDINGS: The lung bases are clear.Small hiatal hernia. Small right pleural effusion. The liver, spleen, pancreas, adrenal glands and kidneys are within normal limits. Cholecystectomy cli ps. No bowel obstruction, free air, free fluid or abscess. Mild sigmoid diverticulosis coli without diver ticulitis. No evidence of appendicitis. Moderate stool throughout the colon. No evidence of significa nt lymphadenopathy. No suspicious bony findings. IMPRESSION: No acute intra-abdominal or pelvic finding. Small right pleural effusion.
[2024-02-04] MEDS ORDERED: HYDROMORPHONE HCL 1 MG/ML INJ ONE (19:47)
--- NOTE | 2024-02-04 20:33 | EDPHYS ---
Physician Documentation [facility] Name: Dayne Medley Age: 83 yrs Sex: Male : 1940 Arrival Date: 02/04/2024 Time: 17:19 Bed 18 Private MD: ED Physician Cortes Carbajal HPI: 02/03 21:27 This 83 yrs old Male presents to ER via Ambulatory with complaints of Nausea/Vomiting. kb 21:27 Pt is a 83 year old male who presents with upper abd pain, nausea and vomiting that kb started this morning after eating breakfast. Denies constipation, diarrhea and fever. Historical: - Allergies: 17:42 No Known Allergies; ap3 - PMHx: 17:42 Atrial fibrillation; CAD; High Cholesterol; Hypertension; ap3 - Immunization history:: Client reports receiving the 2nd dose of the Covid vaccine. - Social history:: Smoking status: Patient denies any tobacco usage or history of. ROS: 21:24 Constitutional: As per HPI kb Exam: 21:25 Constitutional: This is a well developed, well nourished patient who is awake, alert, kb and in no acute distress. Head/Face: Normocephalic, atraumatic. ENT: Moist Mucous membranes Cardiovascular: Regular rate Respiratory: Respirations even and unlabored. No increased work of breathing. Talking in full sentences Skin: Warm, dry with normal turgor. Normal color. MS/ Extremity: Pulses equal, no cyanosis. Neurovascular intact. Full, normal range of motion. Neuro: Awake and alert, GCS 15, oriented to person, place, time, and situation. Moves all extremities. Normal gait. 21:25 Abdomen/GI: Inspection: abdomen appears normal, Bowel sounds: normal, Palpation: soft, in all quadrants, mild abdominal tenderness, in the epigastric area, Vital Signs: 17:39 BP 160 / 100; Pulse 70; Resp 18; Pulse Ox 97% on R/A; Weight 113.4 kg; Height 5 ft. 10 ap3 in. ; Pain 7/10; 18:04 BP 158 / 81; Pulse 58; Resp 16 S; Pulse Ox 95% on R/A; Pain 8/10; kc6 19:00 BP 147 / 78; Pulse 65; Resp 17 S; Pulse Ox 99% on 2 lpm NC; ha1 20:13 BP 167 / 98; Pulse 65; Resp 17 S; Pulse Ox 98% on 2 lpm NC; ha1 21:09 BP 140 / 79; Pulse 64; Resp 17 S; Pulse Ox 97% on R/A; ha1 17:39 Body Mass Index 35.87 (113.40 kg, 177.8 cm) ap3 17:39 Pain Scale: Adult ap3 18:04 Pain Scale: Adult kc6 MDM: 17:26 Patient medically screened. kb 21:26 Differential diagnosis: Nonspecific abd pain, gastritis, pancreatitis, GERD. Data kb reviewed: vital signs, nurses notes. Consideration of Admission/Observation Escalation of care including admission/observation considered. admission considered, but pt reports his pain and nausea have completed resolved and he prefers to go home. Pt will return if needed. Counseling: I had a detailed discussion with the patient and/or guardian regarding the historical points, exam findings, and any diagnostic results supporting the discharge/admit diagnosis, lab results, radiology results, the need for outpatient follow up, a family practitioner, a receiving barn custodian, to return to the emergency department if symptoms worsen or persist or if there are any questions or concerns that arise at home. 02/03 17:39 Order name: CBC with Diff; Complete Time: 18:10 kb 02/03 17:39 Order name: CMP; Complete Time: 18:18 kb 02/03 17:39 Order name: Lipase; Complete Time: 18:18 kb 02/03 17:39 Order name: CT Abd/Pelvis - IV Contrast Only; Complete Time: 19:23 kb 02/03 17:39 Order name: IV Saline Lock; Complete Time: 17:53 kb 02/03 17:39 Order name: Labs collected and sent; Complete Time: 17:53 kb Administered Medications: 18:03 Drug: Famotidine IVP 20 mg IVP once; dilute with 10 mL 0.9% NaCl; give over 2 minutes kc6 Route: IVP; Site: right antecubital; 18:26 Follow up: Response: No adverse reaction kc6 18:03 Drug: Ondansetron IVP 4 mg IVP once; over 2 minutes Route: IVP; Site: right antecubital;kc6 18:26 Follow up: Response: No adverse reaction; Nausea is decreased kc6 18:03 Drug: fentaNYL (PF) IVP 25 mcg IVP once Route: IVP; Site: right antecubital; kc6 18:26 Follow up: Response: No adverse reaction; Pain is unchanged, physician notified; RASS: kc6 Alert and Calm (0) 18:32 Drug: fentaNYL (PF) IVP 25 mcg IVP once Route: IVP; Site: right antecubital; kc6 18:48 Follow up: Response: No adverse reaction; Pain is decreased; RASS: Alert and Calm (0) kc6 19:51 Drug: HYDROmorphone IVP 1 mg IVP once Route: IVP; Site: left antecubital; ha1 20:10 Follow up: Response: No adverse reaction; Pain is decreased; RASS: Alert and Calm (0) ha1 20:50 Drug: Dicyclomine PO 20 mg PO once Route: PO; ha1 21:00 Follow up: Response: No adverse reaction; Marked relief of symptoms ha1 21:08 Not Given (Patient Refused): ondansetron 4 mg IVP once; over 2 minutes ha1 Disposition Summary: 02/04/24 20:32 Discharge Ordered Notes: Location: Home kb Condition: Stable kb Diagnosis - Upper abdominal pain, unspecified kb Followup: kb - With: Emergency Department - When: As needed - Reason: Worsening of condition Followup: kb - With: Private Physician - When: 2 - 3 days - Reason: Recheck today's complaints, Continuance of care, Re-evaluation by your physician Discharge Instructions: - Discharge Summary Sheet kb - Abdominal Pain, Adult, [id number] kb Forms: - Medication Reconciliation Form kb - Thank You Letter kb - Antibiotic Education kb - Prescription Opioid Use kb - Patient Portal Instructions kb - Leadership Thank You Letter Prescriptions: - ondansetron 4 mg Oral Tablet,disintegrating - take 1 tablet ORAL route every 6 hours As needed; 12 tablet; Refills: 0, kb Product Selection Permitted - dicyclomine 20 mg Oral tablet - take 1 tablet ORAL route 4 times per day As needed; 20 tablet; Refills: 0, kb Product Selection Permitted Addendum: 02/06/2024 21:02 Co-signature as Attending Physician, Cortes Carbajal MD I reviewed the patient's care r n provided by the Advanced Practice Provider and agree with the diagnosis and treatment plan. Signatures: Dispatcher [employer] Jess Connelly, ARCH SUPPORT MAKER-C ARCH SUPPORT MAKER-Cortes Balderas MD MD rn Emily Zhang, RN RN ap3 Cecilia Banda, RN RN ha1 Fatemeh Trivedi, RN RN kc6
--- NOTE | 2024-02-04 20:33 | ER ---
Nurse's Notes [facility] Name: Dayne Medley Age: 83 yrs Sex: Male : 1940 Arrival Date: 02/04/2024 Time: 17:19 Bed 18 Private MD: Diagnosis: Upper abdominal pain, unspecified Presentation: 02/03 17:39 Chief complaint: Patient states: he had gallbladder surgery on 01/15/24. patient states ap3 he is having upper abdominal pain, nausea and vomiting that started this morning. patient states he was able to eat breakfast which consisted of toast and gravy and a protein shake. Coronavirus screen: At this time, the client does not indicate any symptoms associated with coronavirus-19. Ebola Screen: No symptoms or risks identified at this time. Initial Sepsis Screen: Does the patient meet any 2 criteria? No. Patient's initial sepsis screen is negative. Does the patient have a suspected source of infection? No. Patient's initial sepsis screen is negative. Risk Assessment: Do you want to hurt yourself or someone else? Patient reports no desire to harm self or others. Onset of symptoms was February 04, 2024. 17:39 Method Of Arrival: Ambulatory ap3 17:39 Acuity: CHARLA 3 ap3 Triage Assessment: 17:42 General: Appears ill, Behavior is calm, cooperative, appropriate for age. Pain: ap3 Complains of pain in abdomen Pain currently is 7 out of 10 on a pain scale. Neuro: Level of Consciousness is awake, alert, obeys commands, Oriented to person, place, time, situation. Cardiovascular: Patient's skin is warm and dry. Respiratory: Airway is patent Respiratory effort is even, unlabored, Respiratory pattern is regular, symmetrical. GI: Reports upper abdominal pain, nausea, vomiting. Historical: - Allergies: 17:42 No Known Allergies; ap3 - PMHx: 17:42 Atrial fibrillation; CAD; High Cholesterol; Hypertension; ap3 - Immunization history:: Client reports receiving the 2nd dose of the Covid vaccine. - Social history:: Smoking status: Patient denies any tobacco usage or history of. Screenin:03 [facility] ED Fall Risk Assessment (Adult) History of falling in the last 3 months, kc6 including since admission No falls in past 3 months (0 pts) Confusion or Disorientation No (0 pts) Intoxicated or Sedated No (0 pts) Impaired Gait No (0 pts) Mobility Assist Device Used Yes (1 pt) Altered Elimination No (0 pt) Score/Fall Risk Level 0 - 2 = Low Risk. Abuse screen: Denies threats or abuse. Denies injuries from another. Nutritional screening: No deficits noted. Tuberculosis screening: No symptoms or risk factors identified. Assessment: 18:04 General: Appears in no apparent distress. comfortable, well groomed, well developed, kc6 Behavior is calm, cooperative, appropriate for age, quiet. Pain: Complains of pain in epigastric area Pain currently is 8 out of 10 on a pain scale. Neuro: Level of Consciousness is awake, alert, obeys commands, Oriented to person, place, time, situation, Appropriate for age. Cardiovascular: Capillary refill < 3 seconds. Respiratory: Airway is patent Trachea midline Respiratory effort is even, unlabored, Respiratory pattern is regular, symmetrical. GI: Abdomen is round non-distended, Bowel sounds present X 4 quads. Abd is soft X 4 quads Abdomen is tender to palpation in epigastric area Reports upper abdominal pain, nausea, vomiting, Patient currently denies diarrhea. : No signs and/or symptoms were reported regarding the genitourinary system. EENT: No signs and/or symptoms were reported regarding the EENT system. Derm: No signs and/or symptoms reported regarding the dermatologic system. Skin is intact, is healthy with good turgor, Skin is pale. Musculoskeletal: No signs and/or symptoms reported regarding the musculoskeletal system. Circulation, motion, and sensation intact. Capillary refill < 3 seconds, Range of motion: intact in all extremities. 18:48 Reassessment: pt to CT via stretcher. kc6 19:40 General: Appears uncomfortable, Behavior is calm, cooperative. Pain: Complains of pain ha1 in abdomen Pain does not radiate. Pain currently is 7 out of 10 on a pain scale. Neuro: Level of Consciousness is awake, alert, obeys commands, Oriented to person, place, time, situation. Cardiovascular: Capillary refill < 3 seconds Patient's skin is warm and dry. Respiratory: Airway is patent Respiratory effort is even, unlabored, Respiratory pattern is regular, symmetrical. GI: Abdomen is round non-distended, Bowel sounds present X 4 quads. Abd is soft X 4 quads Abdomen is tender to palpation in epigastric area Reports upper abdominal pain, nausea, vomiting, Patient currently denies diarrhea. : No signs and/or symptoms were reported regarding the genitourinary system. Derm: Skin is pale. Musculoskeletal: Circulation, motion, and sensation intact. Range of motion: intact in all extremities. 20:10 Reassessment: Patient and/or family updated on plan of care and expected duration. Pain ha1 level reassessed. Patient is alert, oriented x 3, equal unlabored respirations, skin warm/dry/pink. Patient denies pain at this time. Patient states feeling better. Patient states symptoms have improved. Vital Signs: 17:39 BP 160 / 100; Pulse 70; Resp 18; Pulse Ox 97% on R/A; Weight 113.4 kg; Height 5 ft. 10 ap3 in. ; Pain 7/10; 18:04 BP 158 / 81; Pulse 58; Resp 16 S; Pulse Ox 95% on R/A; Pain 8/10; kc6 19:00 BP 147 / 78; Pulse 65; Resp 17 S; Pulse Ox 99% on 2 lpm NC; ha1 20:13 BP 167 / 98; Pulse 65; Resp 17 S; Pulse Ox 98% on 2 lpm NC; ha1 21:09 BP 140 / 79; Pulse 64; Resp 17 S; Pulse Ox 97% on R/A; ha1 17:39 Body Mass Index 35.87 (113.40 kg, 177.8 cm) ap3 17:39 Pain Scale: Adult ap3 18:04 Pain Scale: Adult kc6 ED Course: 17:22 Patient arrived in ED. ra3 17:26 [facility] Kilg[facility]C [facility] kb 17:26 Cortes Carbajal MD is Attending Physician. kb 17:32 Fatemeh Trivedi RN is Primary Nurse. kc6 17:42 Triage completed. ap3 17:44 Arm band placed on right wrist. ap3 17:53 Inserted saline lock: 20 gauge in right antecubital area, using aseptic technique. kc6 Blood collected. Patient maintains SpO2 saturation greater than 95% on room air. 18:04 Patient has correct armband on for positive identification. Placed in gown. Bed in low kc6 position. Call light in reach. Side rails up X 1. Adult w/ patient. Client placed on continuous cardiac and pulse oximetry monitoring. NIBP monitoring applied. 18:58 CT Abd/Pelvis - IV Contrast Only In Process Unspecified. EDMS 21:09 No provider procedures requiring assistance completed. IV discontinued, intact, ha1 bleeding controlled, No redness/swelling at site. Pressure dressing applied. 21:10 Provided Education on: medication administration . ha1 Administered Medications: 18:03 Drug: Famotidine IVP 20 mg IVP once; dilute with 10 mL 0.9% NaCl; give over 2 minutes kc6 Route: IVP; Site: right antecubital; 18:26 Follow up: Response: No adverse reaction kc6 18:03 Drug: Ondansetron IVP 4 mg IVP once; over 2 minutes Route: IVP; Site: right antecubital;kc6 18:26 Follow up: Response: No adverse reaction; Nausea is decreased kc6 18:03 Drug: fentaNYL (PF) IVP 25 mcg IVP once Route: IVP; Site: right antecubital; kc6 18:26 Follow up: Response: No adverse reaction; Pain is unchanged, physician notified; RASS: kc6 Alert and Calm (0) 18:32 Drug: fentaNYL (PF) IVP 25 mcg IVP once Route: IVP; Site: right antecubital; kc6 18:48 Follow up: Response: No adverse reaction; Pain is decreased; RASS: Alert and Calm (0) kc6 19:51 Drug: HYDROmorphone IVP 1 mg IVP once Route: IVP; Site: left antecubital; ha1 20:10 Follow up: Response: No adverse reaction; Pain is decreased; RASS: Alert and Calm (0) ha1 20:50 Drug: Dicyclomine PO 20 mg PO once Route: PO; ha1 21:00 Follow up: Response: No adverse reaction; Marked relief of symptoms ha1 21:08 Not Given (Patient Refused): ondansetron 4 mg IVP once; over 2 minutes ha1 Medication: 21:10 VIS not applicable for this client. ha1 Outcome: 20:32 Discharge ordered by MD. rios 21:09 Discharged to home via wheelchair, with family, ha1 21:09 Condition: stable 21:09 Discharge instructions given to patient, family, Instructed on discharge instructions, follow up and referral plans. medication usage, Demonstrated understanding of instructions, follow-up care, medications, Prescriptions given X 2, 21:10 Patient left the ED. ha1 Signatures: Dispatcher [employer] EDMS Jess Kilgore, MARIA LUZ PA[employer] P[employer]ER-Emily Isaacs RN RN ap3 Cecilia Banda RN RN ha1 Fatemeh Trivedi RN RN kc6 Suzette Boyd ra3
[2024-02-04] MEDS ORDERED: DICYCLOMINE HCL 10 MG CAP ONE (20:49)
[2024-02-04 21:45] VITALS: BP 140/79; O2SAT 97
== END 2024-02-04 21:10 | disposition home or self-care (01) ==
LOC: ER 17:19
DX: R10.10 Upper abdominal pain, unspecified (principal); R11.2 Nausea with vomiting, unspecified; I10 Essential (primary) hypertension; I48.91 Unspecified atrial fibrillation
CPT/HCPCS: 85025; 36415; 83690; 80053; 74177; 99285; Q9967; J3010 ×2; J1170; J2405

== ENCOUNTER 2024-02-06 00:51 | Emergency (ER) | payer OTHER ==
[2024-02-06] MEDS ORDERED: ONDANSETRON 4 MG/2 ML VIAL ONE (01:45)
[2024-02-06] MEDS ORDERED: NA CHLORIDE 0.9% 1,000 ML ONE (01:45)
[2024-02-06] MEDS ORDERED: FAMOTIDINE 20 MG/2 ML VIAL IV ONE (01:45)
[2024-02-06 02:05] LABS: Absolute Basophils 0.1 K/uL (0-0.5); Absolute Eosinophils 0.1 K/uL (0-0.5); Absolute Lymphocytes (CBC) 3.2 K/uL (0.7-4.9); Absolute Monocytes 1.5 K/uL (0.1-1.3); Absolute Neutrophil 10.5 K/uL (1.8-8.0); Basophils % 0.3 % (0-1.3); Eosinophils % 0.6 % (0-4.4); Hematocrit 34.3 % (39.6-49.0); Hemoglobin 11.3 g/dL (13.6-17.9); Lymphocytes % 21.1 % (15.3-44.8); MCH 29.3 pg (27.0-35.0); MCHC 32.9 g/dL (32.0-36.0); MCV 88.9 fL (80-100); MPV 6.4 fL (7.6-11.3); Monocytes % 9.5 % (3.3-12.3); Neutrophils % 68.5 % (41.7-73.7); Platelets 352 thou/uL (152-406); RBC Red Blood Cell Count 3.86 M/uL (4.33-5.43); Red Cell Distribution Width 15.3 % (12.1-15.2)
[2024-02-06 02:12] LABS: PT Prothrombin Time 19.8 SECONDS (9.5-12.5); Protime INR 1.83
[2024-02-06] MEDS ORDERED: SUCCINYLCHOLINE 20 MG/ML (10 ML) IV ONE (02:23)
[2024-02-06] MEDS ORDERED: ETOMIDATE 20 MG/10 ML VIAL IV ONE (02:23)
[2024-02-06] MEDS ORDERED: LEVETIRACETAM 500 MG/5 ML VIAL IV ONE (02:23)
[2024-02-06] MEDS ORDERED: NA CHLORIDE 0.9% 100 ML ONE (02:24)
[2024-02-06 02:25] LABS: Albumin 3.4 g/dL (3.4-5.0); Anion Gap 10.2 mEq/L (5.0-15.0); Bilirubin Direct 0.2 mg/dL (0-0.2); Bilirubin Indirect, Calculated 0.4 mg/dL (0.2-0.8); Bilirubin Total 0.6 mg/dL (0.2-1.0); Globulin 3.3 g/dL (2.3-3.5); Magnesium 2.3 mg/dL (1.6-2.4); Potassium 4.2 mEq/L (3.5-5.1); Protein, Total 6.7 g/dL (6.4-8.2); Troponin High Sensitivity 8.3 pg/mL (<58.9)
[2024-02-06] MEDS ORDERED: LIDOCAINE 100 MG/5 ML SYRINGE IV ONE (02:26)
[2024-02-06] MEDS ORDERED: ROCURONIUM 50 MG/5 ML VIAL IV ONE (02:33)
[2024-02-06] MEDS ORDERED: MIDAZOLAM HCL 5 ML ONE (02:37)
--- NOTE | 2024-02-06 02:43 | ER ---
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 PT HAS BEEN DROWSY AND NAUSEOUS SINCE THEN. PT IS ON XARELTO. PT IS LEANING TOWARDS TO THE LEFT SIDE. Coronavirus screen: At this time, the client does not indicate any symptoms associated with coronavirus-19. Ebola Screen: No symptoms or risks identified at this time. Initial Sepsis Screen: Does the patient meet any 2 criteria? No. Patient's initial sepsis screen is negative. Does the patient have a suspected source of infection? No. Patient's initial sepsis screen is negative. Risk Assessment: Do you want to hurt yourself or someone else? Patient reports no desire to harm self or others. Onset of symptoms was February 06, 2024. 00:59 Method Of Arrival: EMS: [facility] rv 00:59 Acuity: CHARLA 2 rv Triage Assessment: 01:01 General: Appears comfortable, Behavior is calm, cooperative. Pain: Denies pain. Neuro: rv Level of Consciousness is confused, Oriented to person, place, time, situation. Cardiovascular: Capillary refill < 3 seconds Patient's skin is warm and dry. Respiratory: Airway is patent Respiratory effort is even, unlabored. Derm: Skin is intact. Historical: - Allergies: 01: No Known Allergies; rv - PMHx: 01: Atrial fibrillation; CAD; High Cholesterol; Hypertension; rv - PSHx: 01: None; rv - Immunization history:: Adult Immunizations up to date. - Social history:: Smoking status: Patient denies any tobacco usage or history of. - Family history:: not pertinent. Screenin:02 [facility] ED Fall Risk Assessment (Adult) History of falling in the last 3 months, rv including since admission Yes- fall prone (multiple falls) (3 pts) Score/Fall Risk Level 3 or more points = High Risk Oriented to surroundings, Maintained a safe environment, Educated pt \T\ family on fall prevention, incl call for assistance when getting out of bed, Assessed \T\ reinforced patient's understanding of fall precautions. Abuse screen: Denies threats or abuse. Denies injuries from another. Nutritional screening: No deficits noted. Tuberculosis screening: No symptoms or risk factors identified. Assessment: 02:20 General: Behavior is unresponsive. Neuro: Level of Consciousness is unresponsive. cm10 Neuro: [place] Agitation-Sedation Scale (RASS): -5 Unarousable Cardiovascular: Patient's skin is warm and dry. 02:25 Reassessment: Pt being emergently intubated at this time for airway protection. Pt cm10 non-responsive at this time. Reassessment: Pt brought from ER 14 to trauma room 2 to be emergently intubated at this time for airway protection. Pt non-responsive at this time. 02:32 Reassessment: Pt successfully intubated at this time with 7.5fr. 23\T\ the lip. cm10 03:01 Reassessment:. rv 03:06 Reassessment: pt went unresponsive while talking to family at bedside. Dr Yeung rv present at bedside, pt only responds to pain with minimal movement of the extremities, replaced oxygen nasal cannula with mask, immediately brought to CT scan, updated Dr Yeung of the initial CT scan report, moved the patient to trauma 2, placed another IV access, prepared for intubation. IFC inserted. medications given as ordered. family updated of the status and plan of care. Vital Signs: 00:59 BP 135 / 84; Pulse 66; Resp 16; Temp 98; Pulse Ox 100% on R/A; rv 02:38 BP 117 / 68; Pulse 64; Pulse Ox 99% on ETT ambu; tm6 Chip Coma Score: 02:38 Eye Response: spontaneous(4). Motor Response: obeys commands(6). Verbal Response: emelina oriented(5). Total: 15. 02:41 Eye Response: none(1). Motor Response: localizes pain(5). Verbal Response: emelina incomprehensible(2). Total: 8. ED Course: 00:59 Patient arrived in ED. rv 01:01 Triage completed. rv 01:01 Arm band placed on right wrist. rv 01:02 Patient has correct armband on for positive identification. Client placed on continuous rv cardiac and pulse oximetry monitoring. NIBP monitoring applied. youth nutritional monitor on. 01:02 Maintain EMS IV. Dressing intact. Good blood return noted. Site clean \T\ dry. Gauge \T\ rv site: 22 RIGHT HAND. 01:03 No provider procedures requiring assistance completed. rv 01:08 Luis Yeung MD is Attending Physician. emelina 02:06 XRAY Chest (1 view) In Process Unspecified. EDMS 02:20 [facility] called to initiate transfer. ty 02:23 [facility] Called for transport. ty 02:31 CT Traumagram (Head C Spine CAP wo con) In Process Unspecified. EDMS 02:41 Inserted saline lock: 20 gauge in left forearm, using aseptic technique. rv 02:41 Inserted saline lock: 20 gauge in right antecubital area, using aseptic technique. rv Blood collected. 02:41 Glass cath inserted, using sterile technique, 16 Fr., by nv, balloon inflated, to rv gravity drainage, returned clear yellow urine. Patient tolerated well. NGT: inserted 12 Fr. via left nare. to intermittent suction. Returned gastric contents. Returned bile. Patient tolerated well. 02:57 One-on-one care X 15 minutes. cm10 02:57 One-on-one care X 15 minutes. cm10 02:58 Chest Single View In Process Unspecified. EDMS 03:01 Patient transferred, IV remains in place. rv Administered Medications: 01:59 Drug: NS 0.9% IV 1000 ml IV at 125 ml/hr continuous Route: IV; Rate: 125 ml/hr; Site: rv right antecubital; 02:59 Follow up: IV Status: Infusion continued upon transfer cm10 01:59 Drug: Famotidine IVP 20 mg IVP once; dilute with 10 mL 0.9% NaCl; give over 2 minutes rv Route: IVP; Site: right antecubital; 02:59 Follow up: Response: No adverse reaction cm10 01:59 Drug: Ondansetron IVP 4 mg IVP once; over 2 minutes Route: IVP; Site: right antecubital;rv 02:58 Follow up: Response: No adverse reaction cm10 02:30 Drug: Lidocaine IVP 50 mg IVP once Route: IVP; Site: right antecubital; cm10 02:58 Follow up: Response: No adverse reaction cm10 02:31 Drug: Etomidate IVP 20 mg IVP once Route: IVP; Site: left forearm; cm10 02:58 Follow up: Response: No adverse reaction cm10 02:35 Drug: Rocuronium IVP 80 mg IVP once Route: IVP; Site: left forearm; cm10 02:58 Follow up: Response: No adverse reaction cm10 02:37 Drug: Keppra IV 1000 mg IV at per protocol once Route: IV; Rate: per protocol; Site: 6 right antecubital; 02:58 Follow up: Response: No adverse reaction; IV Status: Completed infusion; IV Intake: cm10 100ml 02:38 Drug: NS 0.9% IV 500 ml IV at bolus once Route: IV; Rate: bolus; Site: left antecubital;tm6 02:59 Follow up: Response: No adverse reaction; IV Status: Completed infusion; IV Intake: cm10 500ml 02:42 Drug: Midazolam IVP or IV 4 mg IVP once Route: IVP; Site: left forearm; cm10 02:58 Follow up: Response: No adverse reaction cm10 Medication: 01:02 VIS not applicable for this client. rv Intake: 02:58 IV: 100ml; Total: 100ml. cm10 02:59 IV: 500ml; Total: 600ml. cm10 Outcome: 02:42 ER care complete, transfer ordered by . 02:57 Transferred by helicopter [facility]. to [facility], Transfer form cm10 completed. X-rays sent w/ patient. 02:57 Condition: stable 02:57 Instructed on the need for transfer, 03:01 Patient left the ED. rv Signatures: Dispatcher [employer] EDLuis Cortez MD MD cha Page, Corey, PA PA cp Vicente, Ronaldo, RN RN rv Elaina Biggs RN RN [facility] Esther Ross RN RN [facility] Hugh Gonzalez
--- NOTE | 2024-02-06 02:43 | EDPHYS ---
Physician Documentation [facility] Name: Dayne Medley Age: 83 yrs Sex: Male : 1940 Arrival Date: 02/06/2024 Time: 00:51 Bed 2 Private MD: ED Physician Luis Yeung HPI: 02/05 02:38 This 83 yrs old Male presents to ER via EMS with complaints of fall hit head, emelina ams , acting diff. 02:38 The patient or guardian reports pain, swelling, tenderness. The complaints affect the emelina right side of the back of head and right occipital area. Context of injury: The problem was sustained at home, resulted from a fall. Onset: The symptoms/episode began/occurred 12 hour(s) ago. Associated signs and symptoms: Loss of consciousness: This patient did not experience any loss of consciousness. The patient presents with decreased mental status, decreased responsiveness. Possible causes: head injury. Severity of symptoms: At their worst the symptoms were moderate, in the emergency department the symptoms are actually worse, markedly. Historical: - Allergies: 01: No Known Allergies; rv - PMHx: 01: Atrial fibrillation; CAD; High Cholesterol; Hypertension; rv - PSHx: 01:01 None; rv - Immunization history:: Adult Immunizations up to date. - Social history:: Smoking status: Patient denies any tobacco usage or history of. - Family history:: not pertinent. ROS: 02:38 Constitutional: Negative for fever, chills, and weight loss, Eyes: Negative for injury, emelina pain, redness, and discharge, ENT: Negative for injury, pain, and discharge, Neck: Negative for injury, pain, and swelling, Cardiovascular: Negative for chest pain, palpitations, and edema, Respiratory: Negative for shortness of breath, cough, wheezing, and pleuritic chest pain, Abdomen/GI: Negative for abdominal pain, nausea, vomiting, diarrhea, and constipation, Back: Negative for injury and pain, : Negative for injury, bleeding, discharge, and swelling, MS/Extremity: Negative for injury and deformity, Skin: Negative for injury, rash, and discoloration, Psych: Negative for depression, anxiety, suicide ideation, homicidal ideation, and hallucinations, Allergy/Immunology: Negative for hives, rash, and allergies, Endocrine: Negative for neck swelling, polydipsia, polyuria, polyphagia, and marked weight changes, Hematologic/Lymphatic: Negative for swollen nodes, abnormal bleeding, and unusual bruising, 02:38 Neuro: Positive for altered mental status, headache, weakness, Exam: 02:38 Constitutional: This is a well developed, well nourished patient who is awake, alert, emelina and in no acute distress. Eyes: Pupils equal round and reactive to light, extra-ocular motions intact. Lids and lashes normal. Conjunctiva and sclera are non-icteric and not injected. Cornea within normal limits. Periorbital areas with no swelling, redness, or edema. ENT: Nares patent. No nasal discharge, no septal abnormalities noted. Tympanic membranes are normal and external auditory canals are clear. Oropharynx with no redness, swelling, or masses, exudates, or evidence of obstruction, uvula midline. Mucous membranes moist. Neck: Trachea midline, no thyromegaly or masses palpated, and no cervical lymphadenopathy. Supple, full range of motion without nuchal rigidity, or vertebral point tenderness. No Meningismus. Chest/axilla: Normal chest wall appearance and motion. Nontender with no deformity. No lesions are appreciated. Cardiovascular: Regular rate and rhythm with a normal S1 and S2. No gallops, murmurs, or rubs. Normal PMI, no JVD. No pulse deficits. Respiratory: Lungs have equal breath sounds bilaterally, clear to auscultation and percussion. No rales, rhonchi or wheezes noted. No increased work of breathing, no retractions or nasal flaring. Abdomen/GI: Soft, non-tender, with normal bowel sounds. No distension or tympany. No guarding or rebound. No evidence of tenderness throughout. Back: No spinal tenderness. No costovertebral tenderness. Full range of motion. Male : Normal genitalia with no discharge or lesions. Skin: Warm, dry with normal turgor. Normal color with no rashes, no lesions, and no evidence of cellulitis. MS/ Extremity: Pulses equal, no cyanosis. Neurovascular intact. Full, normal range of motion. Neuro: Awake and alert, GCS 15, oriented to person, place, time, and situation. Cranial nerves II-XII grossly intact. Motor strength 5/5 in all extremities. Sensory grossly intact. Cerebellar exam normal. Normal gait. Psych: Awake, alert, with orientation to person, place and time. Behavior, mood, and affect are within normal limits. 02:38 Head/face: Noted is contusion, hematoma, swelling, that is moderate, of the right side of the back of head and right occipital area, Vital Signs: 00:59 BP 135 / 84; Pulse 66; Resp 16; Temp 98; Pulse Ox 100% on R/A; rv 02:38 BP 117 / 68; Pulse 64; Pulse Ox 99% on ETT ambu; tm6 Chip Coma Score: 02:38 Eye Response: spontaneous(4). Motor Response: obeys commands(6). Verbal Response: emelina oriented(5). Total: 15. 02:41 Eye Response: none(1). Motor Response: localizes pain(5). Verbal Response: emelina incomprehensible(2). Total: 8. Procedures: 02:41 Intubation: Ventilated with 100% NRB prior to procedure. Intubated orally using # 4 emelina Audrey blade with 7.5 mm ETT. was successful on first attempt. Ventilated with Ambu bag. Cricoid pressure applied during procedure. Tube secured at right side of mouth Placement verified by CXR, CO2 detector with (+) color change, auscultating bilateral breath sounds. MDM: 01:08 Patient medically screened. emelina 02:41 Differential diagnosis: Contusion of Hematoma on Laceration of Intracranial bleed- emelina Concussion cerebral contusion. Differential Diagnosis: electrolyte abnormality, hypoglycemia, intracranial bleed, seizure, TIA, volume depletion. Data reviewed: vital signs, nurses notes, EMS record, lab test result(s), EKG, radiologic studies, CT scan, plain films. Consideration of Admission/Observation Escalation of care including admission/observation considered. I considered the following discharge prescriptions or medication management in the emergency department Medications were administered in the Emergency Department. See MAR. Independent interpretation of the following test(s) in the Emergency Department EKG: See my EKG interpretation above. Test considered but Not performed: MRI: no brain mri. Historians other than the Patient: Family Member: and daughter. Care significantly affected by the following chronic conditions: Hypertension, Obesity, a fib, xarelto. Counseling: I had a detailed discussion with the patient and/or guardian regarding the historical points, exam findings, and any diagnostic results supporting the discharge/admit diagnosis, the presence of at least one elevated blood pressure reading (>120/80) during this emergency department visit, lab results, radiology results, the need to transfer to another facility, for higher level of care, [facility] does not immediately have the required specialist. 02/05 01:24 Order name: Basic Metabolic Panel [facility] 02/05 01:24 Order name: CBC with Diff; Complete Time: 02:17 [facility] 02/05 01:24 Order name: LFT's [facility] 02/05 01:24 Order name: Magnesium [facility] 02/05 01:24 Order name: NT PRO-BNP [facility] 02/05 01:24 Order name: PT-INR; Complete Time: 02:17 [facility] 02/05 01:24 Order name: Troponin HS [facility] 02/05 02:16 Order name: Glucose, Ancillary Testing; Complete Time: 02:17 [facility] 02/05 01:24 Order name: XRAY Chest (1 view) [facility] 02/05 01:24 Order name: CT Traumagram (Head C Spine CAP wo con) [facility] 02/05 02:54 Order name: Chest Single View [facility] 02/05 01:24 Order name: Cardiac monitoring; Complete Time: 01:59 [facility] 02/05 01:24 Order name: EKG - Nurse/Tech; Complete Time: 02:00 [facility] 02/05 01:24 Order name: IV Saline Lock; Complete Time: 02:00 [facility] 02/05 01:24 Order name: Labs collected and sent; Complete Time: 02:00 [facility] 02/05 01:24 Order name: O2 Per Protocol; Complete Time: 02:00 [facility] 02/05 01:24 Order name: O2 Sat Monitoring; Complete Time: 02:00 [facility] 02/05 02:24 Order name: IV - Large Bore; Complete Time: 02:37 [facility] Administered Medications: 01:59 Drug: NS 0.9% IV 1000 ml IV at 125 ml/hr continuous Route: IV; Rate: 125 ml/hr; Site: rv right antecubital; 02:59 Follow up: IV Status: Infusion continued upon transfer cm10 01:59 Drug: Famotidine IVP 20 mg IVP once; dilute with 10 mL 0.9% NaCl; give over 2 minutes rv Route: IVP; Site: right antecubital; 02:59 Follow up: Response: No adverse reaction cm10 01:59 Drug: Ondansetron IVP 4 mg IVP once; over 2 minutes Route: IVP; Site: right antecubital;rv 02:58 Follow up: Response: No adverse reaction cm10 02:30 Drug: Lidocaine IVP 50 mg IVP once Route: IVP; Site: right antecubital; cm10 02:58 Follow up: Response: No adverse reaction cm10 02:31 Drug: Etomidate IVP 20 mg IVP once Route: IVP; Site: left forearm; cm10 02:58 Follow up: Response: No adverse reaction cm10 02:35 Drug: Rocuronium IVP 80 mg IVP once Route: IVP; Site: left forearm; cm10 02:58 Follow up: Response: No adverse reaction cm10 02:37 Drug: Keppra IV 1000 mg IV at per protocol once Route: IV; Rate: per protocol; Site: tm6 right antecubital; 02:58 Follow up: Response: No adverse reaction; IV Status: Completed infusion; IV Intake: cm10 100ml 02:38 Drug: NS 0.9% IV 500 ml IV at bolus once Route: IV; Rate: bolus; Site: left antecubital;tm6 02:59 Follow up: Response: No adverse reaction; IV Status: Completed infusion; IV Intake: cm10 500ml 02:42 Drug: Midazolam IVP or IV 4 mg IVP once Route: IVP; Site: left forearm; cm10 02:58 Follow up: Response: No adverse reaction cm10 Disposition: 02:50 Critical Care:. emelina Disposition Summary: 02/06/24 02:42 Transfer Ordered Notes: Transfer Location: [facility] cp Reason: Higher level of care cp Condition: Critical cp Problem: new cp Symptoms: have worsened cp Accepting Physician: dr House(02/06/24 03:01) rv Diagnosis - Fall on same level, unspecified cp - Traumatic subdural hemorrhage - large right sided vwith midline shift(02/06/24 emelina 02:46) - buttermilk drier operator (current) use of anticoagulants emelina Discharge Instructions: - Discharge Summary Sheet ty Forms: - Medication Reconciliation Form cp - SBAR form ty Critical care time excluding procedures: 02:50 Critical care time: Bedside Care: 30 minutes, Consultation: 15 minutes, Family emelina Intervention: 10 minutes. Total time: 55 minutes Signatures: Dispatcher [employer] EDLuis Cortez MD MD cha Page, Corey, PA PA cp Yousif Roa, RN RN rv Elaina Biggs, RN RN cm10 Esther Ross RN RN tm6 Corrections: (The following items were deleted from the chart) 01:25 01:25 BASIC METABOLIC PANEL+C.LAB.BRZ ordered. EDMS EDMS 01:25 01:25 CBC+H.LAB.BRZ ordered. EDMS EDMS 01:25 01:25 HEPATIC FUNCTION+C.LAB.BRZ ordered. EDMS EDMS 01:25 01:25 MAGNESIUM+C.LAB.BRZ ordered. EDMS EDMS 01:25 01:25 PROBNP+C.LAB.BRZ ordered. EDMS EDMS 01:25 01:25 PROTIME (+INR)+COAG.LAB.BRZ ordered. EDMS EDMS 01:25 01:25 Troponin High Sensitivity+C.LAB.BRZ ordered. EDMS EDMS 01:25 01:25 Chest Single View+RAD.RAD.BRZ ordered. EDMS EDMS 01:25 01:25 Head C Spine Cap Wo Con+CT.RAD.BRZ ordered. EDMS EDMS 02:24 02:17 Head C Spine Cap Wo Con+CT.RAD.BRZ ordered. EDMS EDMS 02:46 02:42 dr House cp emelina 02:46 02:42 Traumatic subdural hemorrhage cp emelina 03:01 02:46 dr Lacy tarango rv
[2024-02-06 05:51] VITALS: BP 117/68; TEMP 98; O2SAT 99
--- NOTE | 2024-02-06 18:19 | RAD REPORT ---
EXAM DESCRIPTION: RAD - Chest Single View - 02/06/2024 2:05 am CLINICAL HISTORY: COUGH COMPARISON: None FINDINGS: Cardiac silhouette is within normal limits. Patient is status post median sternotomy. Ther e is atherosclerosis. There is no focal parenchymal or pleural disease. There is no acute osseous pro cess visualized. IMPRESSION: No evidence of acute cardiopulmonary disease. Electronically signed by: Rodriguez Ham MD 02/06/2024 02:45 AM CDT Due to temporary technical issues with the PACS/Fluency reporting system, reports are being signed by the in house radiologists without review as a courtesy to insure prompt reporting. The interpreting radiologist is fully responsible for the content of the report
--- NOTE | 2024-02-06 18:20 | RAD REPORT ---
EXAM DESCRIPTION: RAD - Chest Single View - 02/06/2024 2:57 am CLINICAL HISTORY: POST INTUBATION COMPARISON: Chest x-ray 02/06/2024 TECHNIQUE: Single AP view of the chest. FINDINGS: Endotracheal tube is well-positioned. Enteric tube tip is in the stomach. Median sternotomy changes. Cardiac silhouette is unchanged. No pneumothorax. No large pleural effusion. No focal consolidation. Osseous structures unchanged. IMPRESSION: 1. Lines and tubes as above. 2. No significant change in cardiopulmonary findings. Electronically signed by: Jamel Caro MD 02/06/2024 04:56 AM CDT Due to temporary technical issues with the PACS/Fluency reporting system, reports are being signed by the in house radiologists without review as a courtesy to insure prompt reporting. The interpreting radiologist is fully responsible for the content of the report
--- NOTE | 2024-02-06 18:29 | RAD REPORT ---
EXAM DESCRIPTION: CT - Head C Spine Cap Wo Con - 02/06/2024 7:05 am CLINICAL HISTORY: Male, 83 years old, Dizziness;Headache;Pain COMPARISON: CT abdomen/pelvis 02/04/2024 MRI brain 02/03/[address] abdomen/pelvis 01/05/2024 have rep orts only available at the time of dictation TECHNIQUE: CT acquisition of the head, cervical spine, chest, abdomen, and pelvis per institutional trauma protocol following the administration of IV contrast. Coronal and sagittal reformatted images provided. This exam was performed according to departmental dose-optimization program which includes automated exposure control, adjustment of the mA and/or kV according to patient size, and/or use of i terative reconstruction technique. FINDINGS: SUPPORTIVE DEVICES: None. Lack of intravenous contrast limits evaluation of the cardiomediastinal and abdominopelvic viscera, a s well as the vascular structures. Suboptimal patient positioning and planes of reformation further l imited assessment. HEAD: Brain: Heterogeneously hyperdense right holohemispheric subdural hemorrhage measuring up to 19 mm in thickness (coronal image 42/83) extending along the falx and right tentorium. Measurement of midline shift is inadequate due to nonstandard imaging planes, but best estimate of approximately 13 mm leftw hannah. Partial subfalcine herniation. CSF Spaces: Effacement of essentially all right supratentorial sulci. Partial effacement of the right lateral ventricle and prominence of the left lateral ventricle, which may be due to underlying ex va cuo expansion. The basilar cisterns and 4th ventricles are preserved. Skull: The calvarium is intact. Soft tissue: Small right parietal scalp hematoma. Other: The imaged facial bones are intact. Prior lens surgery, otherwise unremarkable orbits. The vis ualized paranasal sinuses and mastoid cells are clear. CERVICAL SPINE: Morphology: Normal vertebral body heights. No identified fracture. Alignment: No traumatic listhesis. Craniocervical Junction: Intact with degenerative change. Disc Levels: Moderate multilevel degenerative changes. Other: No acute finding of the neck soft tissues or imaged lung apices. CHEST: Vasculature: No noncontrast evidence of injury. Heart and Pericardium: Normal heart size. No pericardial effusion. Post-CABG change. Mediastinum: No mediastinal hematoma. Unremarkable esophagus with small hiatal hernia. Lungs and Airways: No pulmonary contusion or laceration. Geographic groundglass attenuation in the ri ght greater than left lung with peripheral pulmonary arterial prominence. Compressive atelectasis of the right lower lobe. Pleural Space: Small layering subtle density right pleural effusion. ABDOMEN/PELVIS: Liver: No evidence of liver injury. Gallbladder/Biliary System: Postcholecystectomy, otherwise unremarkable. Pancreas: No evidence of pancreatic injury. Spleen: No evidence of splenic injury. Diminutive size. Adrenals: Unremarkable. Kidneys and Ureters: No evidence of injury. Bladder: Contracted with dense intraluminal contents, likely previously excreted contrast. Reproductive Organs: Unremarkable. Vasculature: No noncontrast evidence of injury. Aortic and branch vessel atherosclerosis. Mesentery and Peritoneum: No hemoperitoneum or pneumoperitoneum. Surgical clips within the pelvis. Bowel: Atraumatic appearance. THORACIC AND LUMBAR SPINE: Morphology: No fracture. Vertebral body heights are normal. Alignment: No traumatic listhesis. Disc Levels: Moderate multilevel degenerative changes. MUSCULOSKELETAL: Chest Wall: No rib or sternal fracture. Median sternotomy wires. Pelvis: No fracture. Proximal Appendicular Bones and Joints: No fracture or joint malalignment. Degenerative changes of th e shoulders and hips. Muscles and Subcutaneous Tissues: Right lateral abdominal intramuscular hematoma measuring 6 x 2.5 cm . Surrounding stranding and several adjacent small nodular foci of blood products. IMPRESSION: 1. Holohemispheric right mixed density subdural hemorrhage measuring up to 19 mm in th ickness with leftward midline shift measuring approximately 13 mm. Partial effacement of the right la teral ventricle and partial subfalcine herniation. 2. Small right parietal scalp hematoma. 3. No acute traumatic injury of the contents of the chest, abdomen, or pelvis within the limitation s of a noncontrast exam. 4. No acute cervical, thoracic, or lumbar osseous abnormality. 5. Right lateral intramuscular abdominal wall hematoma. Follow-up to resolution to exclude underlyi ng mass. 6. Multiple chronic and incidental findings above. I communicated the above critical intracranial finding German Barreto 02/06/2024 2: 58 A M CDTt 02/06/2024 2:58 AM CDT, who demonstrated understanding of the above finding(s)/recommendation(s ) and provided positive read back of the communication. Electronically signed by: See Restrepo MD 02/06/2024 03:02 AM CDT Due to temporary technical issues with the PACS/Fluency reporting system, reports are being signed by the in house radiologists without review as a courtesy to insure prompt reporting. The interpreting radiologist is fully responsible for the content of the report
--- NOTE | 2024-02-07 13:43 | EKG ---
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
== END 2024-02-06 03:01 | disposition short-term general hospital (02) ==
LOC: ER 00:51
DX: S06.5X0A Traumatic subdural hemorrhage without loss of consciousness, initial encounter (principal); W18.30XA Fall on same level, unspecified, initial encounter; Z79.01 Long term (current) use of anticoagulants; I10 Essential (primary) hypertension; I48.91 Unspecified atrial fibrillation
CPT/HCPCS: 93005; 85025; 80048; 36415; 83735; 85610; 82947; 80076; 84484; 83880; 70450; 71250; 72125; 71045 ×2; 31500; 99285; 94002; J2250; J1953; J2405; J7030